=== PATIENT | female | born 1940 | race Caucasian/White ===

== ENCOUNTER → 2016-10-08 | Outpatient (CLI) | payer MEDICARE ==
[~2016-10-08] MED LIST: ASP325TEC; CALCIUM; CARV12.52; CLOP75TA; FELO10TA31; OMG1KC; SIMV20TA3; VITAMIN D
--- NOTE | 2016-10-08 17:07 | Diagnostic Imaging Report ---
EXAMINATION: Bilateral digital screening mammogram with CAD. The current study was also evaluated with a Computer Aided Detection (CAD) system. INDICATION: Screening. No current complaints stated on the questionnaire. COMPARISON: 07/11/15. FINDINGS: The breasts are composed of scattered fibroglandular densities. There is an oval asymmetry seen in the outer aspect of the right breast, measuring 7 mm. The left breast demonstrates no significant change. Benign-appearing vascular calcifications. IMPRESSION: Focal compression views and ultrasound evaluation for lateral right breast asymmetry is recommended. ACR BI-RADS Category 0: Incomplete. (Needs additional imaging evaluation). Result letter will be mailed to the patient. Note: At least 10% of breast cancer is not imaged by mammography. Dictated by: Dictated on workstation # [id number]
== END ==
LOC: RAD 11:15
PROVIDERS: ATTEND Internal Medicine
DX: E04.1 Nontoxic single thyroid nodule (principal)
CPT/HCPCS: 77067

== ENCOUNTER → 2016-10-14 | Outpatient (CLI) | payer MEDICARE ==
--- NOTE | 2016-10-14 19:08 | Diagnostic Imaging Report ---
EXAMINATION: Right breast ultrasound. INDICATION: Asymmetry along the outer aspect of the right breast. FINDINGS: The retroareolar region and outer aspect of the breast was scanned with no other abnormality seen. IMPRESSION: Negative study. The mammographic findings in the outer aspect of the right breast is likely related to summation artifact of parenchyma. Six-month followup mammogram is recommended to ensure stability or resolution. ACR BI-RADS Category 3: Probably benign findings. Result letter will be mailed to the patient. Note: At least 10% of breast cancer is not imaged by mammography. Dictated by: Dictated on workstation # [id number]
--- NOTE | 2016-10-14 19:14 | Diagnostic Imaging Report ---
Right breast diagnostic mammogram. INDICATION: Asymmetry along the outer aspect of the right breast. The current study was also evaluated with a Computer Aided Detection (CAD) system. FINDINGS: There is no correlating lesion seen on the true lateral projection. There is persistent slight density seen of the area of asymmetry noted with focal compression view with no definite underlying lesion. IMPRESSION: Focal compression view is showing less prominent underlying density in favor of summation artifact of parenchyma. Ultrasound evaluation pending. ACR BI-RADS Category 0: Incomplete. (Needs additional imaging evaluation). Result letter will be mailed to the patient. Note: At least 10% of breast cancer is not imaged by mammography. Dictated by: Dictated on workstation # [id number]
== END ==
LOC: RAD 14:09
PROVIDERS: ATTEND Internal Medicine
DX: R92.8 Other abnormal and inconclusive findings on diagnostic imaging of breast (principal)

== ENCOUNTER → 2018-02-15 | Outpatient (CLI) | payer MEDICARE ==
--- NOTE | 2018-02-15 12:00 | Diagnostic Imaging Report ---
INDICATION: Pain and swelling. Wagoner a pop a couple of days ago when getting into car. TECHNIQUE: 3 views of the right knee CORRELATION STUDY: None FINDINGS: Mild diffuse joint space narrowing both medially and laterally. The articular surfaces are smooth. Mild marginal osteophyte formation lateral tibial plateau. No findings to suggest an acute bony abnormality. Minimal spur formation superior pole of patella. There is rather prominent particularly suprapatellar joint effusion. IMPRESSION: 1. Negative for acute bony abnormality of the knee. Prominent suprapatellar joint effusion. Given history and overall findings, if further assessment for intrinsic ligament, meniscal or tendon injury is desired, MRI would be recommended. Dictated by: Dictated on workstation # [id number]
--- NOTE | 2018-02-15 14:55 | Diagnostic Imaging Report ---
INDICATION: Pop behind the right knee. TECHNIQUE: Multiple Real-time grayscale images were obtained over the right popliteal fossa in various projections. FINDINGS: There is a large complex fluid collection in the popliteal fossa measuring 12 x 4 x 5.2 cm. This appears to be some echogenic fluid, likely blood and fluid related to a ruptured White's cyst. This does not appear to be associated with blood vessels. There is no blood flow within it. IMPRESSION: Large complex fluid collection of popliteal cyst, likely a partially ruptured White's cyst. There is no blood flow within it. This does not appear to be associated with the vessels. Dictated by: Dictated on workstation # [id number]
== END ==
LOC: RAD 11:15
PROVIDERS: ATTEND Physician Assistant
DX: M71.21 Synovial cyst of popliteal space [Baker], right knee (principal)
CPT/HCPCS: 73562; 76881

== ENCOUNTER → 2018-11-08 | Outpatient (CLI) | payer MEDICARE ==
--- NOTE | 2018-11-08 21:58 | Diagnostic Imaging Report ---
INDICATION: Routine screening. Comparison is made with prior mammogram from 10/08/2016 and 06/25/2015. 2-D and 3-D bilateral screening mammography was performed with a Computer Aided Detection (CAD) system. FINDINGS: Both breasts are heterogeneously dense, limiting the sensitivity of mammography. The parenchymal pattern is stable. No mass or malignant appearing microcalcifications are seen. Axillae are unremarkable. IMPRESSION: No mammographic features suspicious for malignancy are identified. ACR BI-RADS Category 1: Negative. Result letter will be mailed to the patient. Note: At least 10% of breast cancer is not imaged by mammography. Dictated by: Dictated on workstation # [id number]
== END ==
LOC: RAD 08:44
PROVIDERS: ATTEND Internal Medicine
DX: Z12.31 Encounter for screening mammogram for malignant neoplasm of breast (principal)
CPT/HCPCS: 77067

== ENCOUNTER → 2020-10-10 | Outpatient (CLI) | payer MEDICARE ==
--- NOTE | 2020-10-10 17:02 | Diagnostic Imaging Report ---
EXAMINATION: Left ankle at 02:18 p.m. INDICATION: Left ankle pain. Three views were obtained. COMPARISON: There are no prior studies available for comparison. FINDINGS: There is no fracture, dislocation or acute bony abnormality evident. The ankle mortise is not widened and the talar dome is smooth. There does seem to be soft tissue edema about the ankle joint, particularly along its lateral aspect. IMPRESSION: There is no evidence for an acute bony abnormality. Dictated by: Dictated on workstation # [id number]
== END ==
LOC: RAD 14:02
PROVIDERS: ATTEND Physician Assistant
DX: M25.572 Pain in left ankle and joints of left foot (principal)
CPT/HCPCS: 73610

== ENCOUNTER → 2020-11-11 | Outpatient (CLI) | payer MEDICARE ==
[2020-11-11 16:08] LABS: HEMOGLOBIN 8.8 g/dL (11.5-16.0); MEAN PLATELET VOLUME 8.8 fL (9.0-12.2)
[2020-11-11 16:30] LABS: ALANINE AMINOTRANSFERASE 15 U/L (0-55); ALBUMIN 4.2 GM/DL (3.2-4.5); ALKALINE PHOSPHATASE 99 U/L (40-136); BILIRUBIN,TOTAL 0.9 MG/DL (0.1-1.0); BUN/CREATININE RATIO 16; CALCIUM 9.2 MG/DL (8.5-10.1); CARBON DIOXIDE 28 MMOL/L (21-32); CHLORIDE 97 MMOL/L (98-107); GFR ESTIMATED > 60; GLUCOSE 93 MG/DL (70-105); POTASSIUM 3.7 MMOL/L (3.6-5.0); SODIUM 136 MMOL/L (135-145); TOTAL PROTEIN 7.8 GM/DL (6.4-8.2)
--- NOTE | 2020-11-11 16:59 | Diagnostic Imaging Report ---
PROCEDURE: CT head without contrast. TECHNIQUE: Multiple contiguous axial images were obtained through the brain without the use of intravenous contrast. Auto Exposure Controls were utilized during the CT exam to meet ALARA standards for radiation dose reduction. INDICATION: Dizziness. Syncope. Frontal headache. COMPARISON: None. FINDINGS: Moderate generalized cerebral and cerebellar parenchymal volume loss. Moderate leukoaraiosis. No CT evidence of a territorial infarction. No intracranial hemorrhage, mass effect, hydrocephalus, or extra-axial fluid collections. No acute osseous findings. Visualized paranasal sinuses and mastoids are clear. IMPRESSION: No acute intracranial CT findings. Dictated by: Dictated on workstation # [id number]
== END ==
LOC: RAD
PROVIDERS: ATTEND Physician Assistant
DX: R42 Dizziness and giddiness (principal); R53.1 Weakness; R55 Syncope and collapse; R51.9 Headache, unspecified
CPT/HCPCS: 36415; 70450; 80053; 84443; 85027

== ENCOUNTER → 2020-11-12 | Outpatient (CLI) | payer MEDICARE | LOC: LABNPT 06:13 | PROVIDERS: ATTEND Physician Assistant | DX: R42 Dizziness and giddiness (principal); R55 Syncope and collapse; R53.1 Weakness ==

== ENCOUNTER → 2020-11-27 | Outpatient (CLI) | payer MEDICARE ==
[~2020-11-27] MED LIST changes: +ASPI-808 PO; +CARV12.53 PO; +DILT120T3 PO; +FURO40TA4 PO; +OMEP20CA18 PO; +PANT40TA2 PO; +POTA99TA21 PO; +RIVA20TA PO; +SIMV40TA25 PO; +SUCR1TAB36 PO
== END ==
LOC: CANPRECLI → LAB 16:00
PROVIDERS: ATTEND Nurse Practitioner Family

== ENCOUNTER → 2020-11-27 | Outpatient (CLI) | payer MEDICARE ==
[~2020-11-27] MED LIST changes: -ASPI-808 PO; -CARV12.53 PO; -DILT120T3 PO; -FURO40TA4 PO; -OMEP20CA18 PO; -PANT40TA2 PO; -POTA99TA21 PO; -RIVA20TA PO; -SIMV40TA25 PO; -SUCR1TAB36 PO
[2020-11-27 16:29] LABS: BASOPHILS # (AUTO) 0.1 10^3/uL (0.0-0.1); BASOPHILS % (AUTO) 1 % (0-10); EOSINOPHILS # (AUTO) 0.1 10^3/uL (0.0-0.3); EOSINOPHILS % (AUTO) 2 % (0-10); HEMATOCRIT 28 % (35-52); HEMOGLOBIN 8.4 g/dL (11.5-16.0); LYMPHOCYTES # (AUTO) 0.9 10^3/uL (1.0-4.0); LYMPHOCYTES % (AUTO) 20 % (12-44); MEAN CORPUSCULAR HEMOGLOBIN 26 pg (25-34); MEAN CORPUSCULAR HGB CONC 30 g/dL (32-36); MEAN CORPUSCULAR VOLUME 85 fL (80-99); MEAN PLATELET VOLUME 8.8 fL (9.0-12.2); MONOCYTES # (AUTO) 0.6 10^3/uL (0.0-1.0); MONOCYTES % (AUTO) 12 % (0-12); NEUTROPHILS % (AUTO) 65 % (42-75); PLATELET COUNT 259 10^3/uL (130-400); WHITE BLOOD COUNT 4.7 10^3/uL (4.3-11.0)
[2020-11-27 16:48] LABS: ALANINE AMINOTRANSFERASE 24 U/L (0-55); ALKALINE PHOSPHATASE 84 U/L (40-136); BILIRUBIN,TOTAL 0.6 MG/DL (0.1-1.0); BUN/CREATININE RATIO 17; CALCIUM 8.6 MG/DL (8.5-10.1); CARBON DIOXIDE 26 MMOL/L (21-32); CHLORIDE 97 MMOL/L (98-107); CREATININE SERUM 0.72 MG/DL (0.60-1.30); GFR ESTIMATED > 60; GLUCOSE 99 MG/DL (70-105); POTASSIUM 3.7 MMOL/L (3.6-5.0); SODIUM 131 MMOL/L (135-145)
== END ==
LOC: LAB 16:08
PROVIDERS: ATTEND Nurse Practitioner Family
DX: R42 Dizziness and giddiness (principal); R53.83 Other fatigue; R60.9 Edema, unspecified
CPT/HCPCS: 80053

== ENCOUNTER → 2020-12-05 | Outpatient (CLI) | payer MEDICARE ==
[~2020-12-05] MED LIST changes: +ASPI-808 PO; +CARV12.53 PO; +DILT120T3 PO; +FURO40TA4 PO; +OMEP20CA18 PO; +POTA99TA21 PO; +RIVA20TA PO; +SIMV40TA25 PO
--- NOTE | 2020-12-05 15:31 | Diagnostic Imaging Report ---
EXAMINATION: CT Abdomen Pelvis without contrast. TECHNIQUE: Multiple contiguous axial images were obtained through the abdomen and pelvis without the use of intravenous contrast. All CT scans use one or more of the following dose optimizing techniques: automated exposure control, MA and/or KvP adjustment based on a patient size and exam type, or iterative reconstruction. HISTORY: Abdominal pain and bloating. COMPARISON: None available. FINDINGS: Lung bases: There is a large right pleural effusion with adjacent atelectasis or consolidation. Solid organs: The liver is normal. The gallbladder is normal. There is no biliary ductal dilation. Pancreas is normal. Spleen is normal. Adrenal glands are normal. The kidneys are normal without visualized calculus or hydronephrosis. Bowel: The bowel is unremarkable without obstruction. There is a moderate amount of stool within the colon. Peritoneum: There is trace free fluid within the abdomen and pelvis. No suspicious lymphadenopathy. Vasculature: Calcification of the aorta without aneurysm. Musculoskeletal: Multilevel degenerative changes of the lumbar spine with mild compression deformities at L3 and L5. No suspicious osseous lesion. Pelvis: The uterus and adnexa are normal. The urinary bladder is normal. IMPRESSION: 1. No acute abnormality in the abdomen or pelvis. No bowel obstruction. 2. Mild abdominal and pelvic ascites. 3. Large right pleural effusion with adjacent atelectasis or consolidation. Dictated by: Dictated on workstation # [id number]
== END ==
LOC: RAD 14:52
PROVIDERS: ATTEND Internal Medicine
DX: R10.9 Unspecified abdominal pain (principal); R18.8 Other ascites; J90 Pleural effusion, not elsewhere classified; J98.11 Atelectasis
CPT/HCPCS: 74176

== ENCOUNTER 2020-12-09 05:28 | Outpatient (RCR) | payer MEDICARE ==
[~2020-12-09] VITALS: Ht 160 cm; Wt 49.9 kg
[~2020-12-09 05:28] MED LIST changes: -PANT40TA2 PO; -SUCR1TAB36 PO
[2020-12-10] MEDS ORDERED: PANT40TA2 PO (15:15)
[2020-12-10] MEDS ORDERED: SUCR1TAB36 PO (15:15)
== END 2020-12-09 09:30 | disposition home or self-care (01) ==
LOC: PREOP 05:28
PROVIDERS: ATTEND Surgery
DX: Z01.812 Encounter for preprocedural laboratory examination (principal); D64.9 Anemia, unspecified; R19.4 Change in bowel habit; Z20.822 Contact with and (suspected) exposure to COVID-19
CPT/HCPCS: 87635

== ENCOUNTER → 2020-12-09 | Outpatient (CLI) | payer MEDICARE ==
[~2020-12-09] MED LIST changes: +PANT40TA2 PO; +SUCR1TAB36 PO
[2020-12-09 08:18] VITALS: BP 107/90
[2020-12-09 09:00] VITALS: BP 110/87
--- NOTE | 2020-12-09 09:42 | Diagnostic Imaging Report ---
INDICATION: Status post thoracentesis. COMPARISON: CT dated 12/05/2020 FINDINGS: Single frontal radiograph view of the chest was obtained and demonstrates mild cardiomegaly and calcified aortic atherosclerosis. Pulmonary vasculature is within normal limits. Lungs are hyperinflated with flattened hemidiaphragms, but are otherwise clear. There is no large pneumothorax or effusion on either side. Osseous structures show no gross acute abnormalities. IMPRESSION: 1. No pneumothorax status post thoracentesis. 2. Hyperinflated appearance to the lungs. Please correlate for underlying obstructive pulmonary disease. Dictated by: Dictated on workstation # [id number]
[2020-12-09 09:44] LABS: AMYLASE,BODY FLUID 33 U/L; GLUCOSE,BODY FLUID 95 MG/DL; LDH,BODY FLUID 121 U/L; TOTAL PROTEIN,BODY FLUID 3.9 G/DL
[2020-12-09 10:36] LABS: BODY FLUID SOURCE PLEURAL
[2020-12-09 10:37] LABS: BF OTHER CELLS 10 %; BODY FLUID APPEARENCE MOD BLDY; BODY FLUID COLOR RED; BODY FLUID RBC COUNT 54500 /uL; BODY FLUID WBC TOTAL COUNT 700 /uL; LYMPHOCYTES,BODY FLUID 77 %
--- NOTE | 2020-12-09 12:31 | Diagnostic Imaging Report ---
INDICATION: Right-sided pleural effusion. Sonographic guidance was provided for Dr. Pack for performance of a thoracentesis. Images demonstrate a large right pleural effusion. Approximately 400 mL of fluid was removed by Dr. Pack. IMPRESSION: Sonographic guidance Dr. Pack for thoracentesis. Dictated by: Dictated on workstation # [id number]
== END ==
LOC: RAD 08:05
PROVIDERS: ATTEND Surgery
DX: J90 Pleural effusion, not elsewhere classified (principal); Z98.890 Other specified postprocedural states
CPT/HCPCS: 32555; 71045; 82150; 82570; 82945; 83615; 84157; 87070; 87075; 87205; 89051; A7048

== ENCOUNTER 2020-12-10 13:55 | Day surgery (SDC) | payer MEDICARE ==
[~2020-12-10] VITALS: Ht 160 cm; Wt 50.0 kg
[2020-12-10] MEDS ORDERED: LACTATED RINGERS 1,000 ML IV ONE (13:56)
[2020-12-10] MEDS ORDERED: LACTATED RINGERS 1,000 ML IV STA (13:57)
[2020-12-10] MEDS ORDERED: HURRICAINE EXT TUBE (BENZOCAINE) XX PRN (14:00)
[2020-12-10] MEDS ORDERED: PROPOFOL INJECTION 50 ML IV ONE (14:07)
--- NOTE | 2020-12-10 14:08 | Progress Note-Pre Operative ---
Pre-Operative Progress Note H&P Reviewed The H&P was reviewed, patient examined and no changes noted. Date Seen by Provider: Dec 10, 2020 Time Seen by Provider: 14:07 Date H&P Reviewed: Dec 10, 2020 Time H&P Reviewed: 14:07 Pre-Operative Diagnosis: anemia, change in bowel habits DOROTHEA CHAVARRIA DO Dec 10, 2020 14:08
[2020-12-10 14:18] VITALS: BP 135/120
[2020-12-10 15:00] VITALS: BP 96/54
[2020-12-10 15:05] VITALS: BP 92/54
--- NOTE | 2020-12-10 15:06 | Anesthesia-General Post-Op ---
MAC Patient Condition Mental Status/LOC: Same as Preop Cardiovascular: Satisfactory Nausea/Vomiting: Absent Respiratory: Satisfactory Pain: Controlled Complications: Absent Post Op Complications Complications None Follow Up Care/Instructions Patient Instructions None needed. Anesthesiology Discharge Order Discharge Order Patient is doing well, no complaints, stable vital signs, no apparent adverse anesthesia problems. No complications reported per nursing. SUSIE MACHADO CRNA Dec 10, 2020 15:06
[2020-12-10 15:10] VITALS: BP 91/53
--- NOTE | 2020-12-10 15:11 | Progress Note-Post Operative ---
Post-Operative Progess Note Surgeon (s)/Director Of Physical Education (s) Surgeon DOROTHEA CHAVARRIA DO Director Of Physical Education: na Pre-Operative Diagnosis anemia, change in bowel habits Post-Operative Diagnosis normal colon, antral ulcer Procedure & Operative Findings Date of Procedure 12/10/20 Procedure Performed/Findings egd c biopsy, colonoscopy Anesthesia Type per stock chaser Estimated Blood Loss Estimated blood loss (mL): none Specimens/Packing Specimens Removed antral ulcer DOROTHEA CHAVARRIA DO Dec 10, 2020 15:11
[2020-12-10 15:15] VITALS: BP 91/53
[2020-12-10] MEDS ORDERED: SUCR1TAB36 PO (15:15)
[2020-12-10] MEDS ORDERED: PANT40TA2 PO (15:15)
--- NOTE | 2020-12-10 15:16 | Discharge Inst-Simple/Standard ---
Discharge Inst-Standard Discharge Medications New, Converted or Re-Newed RX: Transmitted to Pharmacy Patient Instructions/Follow Up Plan of Care/Instructions/FU: 2 weeks Ramone. Discussed with Cardiology Afib, Take your home medications and monitor heart rate. If heart rate remains greater than 100 go to the emergency department for further evaluation. Activity as Tolerated: Yes Discharge Diet: Regular Diet (ulcer diet) DOROTHEA CHAVARRIA DO Dec 10, 2020 15:16
[2020-12-10 15:50] VITALS: BP 93/58
--- NOTE | 2020-12-11 01:48 | OPERATIVE REPORT ---
DATE OF SERVICE: 12/10/2020 PREOPERATIVE DIAGNOSES: Anemia, change in bowel habits. POSTOPERATIVE DIAGNOSES: Normal colon, antral ulcer, and gastritis. PROCEDURE: EGD with biopsies, colonoscopy. SURGEON: Dorothea Pack DO ANESTHESIA: Per CHECK AND TRANSFER BEADER. ESTIMATED BLOOD LOSS: None. COMPLICATIONS: None. INDICATIONS: The patient is an 80-year-old female who found to be anemic and has had a change in bowel habits. She understands risks and benefits of procedure and wished to proceed with procedure. Consent was signed in the chart. DESCRIPTION OF PROCEDURE: The patient was taken to the endoscopy suite, placed in left lateral recumbent position. Timeout was performed. Scope was inserted in mouth, down the esophagus, stomach and into the duodenum. There were no polyps, masses or ulcerations within the duodenum. Scope was slowly retracted back into the stomach where it was further insufflated. Gastritis appearance, erythematous changes throughout the antrum present. Also, antral ulcer present, biopsy of the antral ulcer was obtained. Scope was retroflexed noting no other pathology. Scope was returned to its normal position, slowly withdrawn to distal esophagus, which had a normal appearance. No polyps, masses or ulcerations noted there. No erythematous changes. Scope was then slowly retracted back to completely remove, noting no other pathology. Digital rectal exam was performed. There were no palpable polyps, masses or ulcerations. Scope was inserted in the rectum, advanced all the way to cecum with minimal difficulty. Prep was adequate. Scope was then slowly retracted back. No polyps, masses or ulcerations within the cecum, ascending, transverse, descending and sigmoid colon. Once in the rectum, scope was inserted and retracted multiple times, noting no other pathology. Scope was then slowly retracted back until completely removed. The patient tolerated procedure well without any complications. She was taken to recovery room in stable condition. RECOMMENDATIONS: The patient will be started on Carafate 1 gram four times a day and Protonix 40 mg daily. The patient is with history of atrial fibrillation and has atrial fibrillation now. I discussed with cardiology, who recommend proceeding was discharged home with the patient taking her medications. Continue to monitor heart rate. If continues to be elevated to return to the Emergency Department for further evaluation. Job ID: [id number] DocumentID: [id number] Dictated Date: 12/10/2020 15:19:45 Review Scheduling Coordinator Date: 12/11/2020 01:48:02 Dictated By: DOROTHEA PACK DO
--- NOTE | 2020-12-11 03:18 | OPERATIVE REPORT ---
DATE OF SERVICE: PREOPERATIVE DIAGNOSIS: Right pleural effusion. POSTOPERATIVE DIAGNOSIS: Right pleural effusion. PROCEDURE: Ultrasound-guided right thoracentesis. SURGEON: Dorothea Pack DO ANESTHESIA: Local 1% lidocaine 3 mL. ESTIMATED BLOOD LOSS: Minimal. COMPLICATIONS: None. INDICATIONS: The patient is an 80-year-old female with a large right pleural effusion by CT scan. She understands risks and benefits of procedure and wished to proceed with procedure. Consent was signed in the chart. DESCRIPTION OF PROCEDURE: The patient was taken to the procedure room and ultrasound was used to isolate the largest pocket on the right chest. Local anesthetic was infiltrated after it was prepped and draped in sterile fashion. A #11 blade scalpel was used to make a small skin incision and [id number]-[id number] catheter and needle was advanced until fluid was returned. The catheter was advanced, and the needle was removed. A total of 400 mL of slightly blood-tinged fluid was withdrawn. The catheter was removed, and sterile bandage was applied. The patient tolerated procedure well without any complications. Chest x-ray pending. Job ID: [id number] DocumentID: [id number] Dictated Date: 12/10/2020 14:32:22 Crater And Packer Date: 12/11/2020 01:13:32 Dictated By: DOROTHEA PACK DO
== END 2020-12-10 15:50 | disposition home or self-care (01) ==
LOC: ENDO 13:55
PROVIDERS: ATTEND Surgery
DX: K29.50 Unspecified chronic gastritis without bleeding (principal); K25.9 Gastric ulcer, unspecified as acute or chronic, without hemorrhage or perforation; R19.4 Change in bowel habit; I48.91 Unspecified atrial fibrillation; E78.2 Mixed hyperlipidemia; I10 Essential (primary) hypertension; J90 Pleural effusion, not elsewhere classified; D50.9 Iron deficiency anemia, unspecified; I25.10 Atherosclerotic heart disease of native coronary artery without angina pectoris; K31.89 Other diseases of stomach and duodenum; Z88.8 Allergy status to other drugs, medicaments and biological substances; Z87.891 Personal history of nicotine dependence; Z79.82 Long term (current) use of aspirin; Z20.822 Contact with and (suspected) exposure to COVID-19; Z79.899 Other long term (current) drug therapy; Z95.828 Presence of other vascular implants and grafts; Z79.01 Long term (current) use of anticoagulants; Z79.02 Long term (current) use of antithrombotics/antiplatelets
CPT/HCPCS: 88305; 88342

== ENCOUNTER → 2021-01-13 | Outpatient (CLI) | payer MEDICARE ==
[~2021-01-13] MED LIST changes: +PANT40TA2 PO; +SUCR1TAB36 PO
--- NOTE | 2021-01-13 10:36 | Diagnostic Imaging Report ---
Indication: Right pleural effusion. Time of exam: 10:22 AM Correlation is made with prior chest 12/09/2020. The heart is enlarged but stable. There is a small right pleural effusion. The lungs are hyperinflated consistent with COPD. No infiltrates are identified. There is no pneumothorax. IMPRESSION: COPD and small right pleural effusion. Dictated by: Dictated on workstation # [id number]
== END ==
LOC: RAD 09:47
PROVIDERS: ATTEND Physician Assistant
DX: J90 Pleural effusion, not elsewhere classified (principal); J44.9 Chronic obstructive pulmonary disease, unspecified
CPT/HCPCS: 71046

== ENCOUNTER → 2021-09-08 | Outpatient (CLI) | payer MEDICARE ==
[~2021-09-08] MED LIST changes: -POTA99TA21 PO; +POTA99TA26 PO
== END ==
LOC: LAB 13:18
PROVIDERS: ATTEND Internal Medicine
DX: D64.9 Anemia, unspecified (principal)
CPT/HCPCS: 36415; 82728

== ENCOUNTER → 2021-09-15 | Outpatient (CLI) | payer MEDICARE ==
[2021-09-15 15:24] LABS: ABSOLUTE RETIC # 42 10e9/uL (24-90); BASOPHILS % (AUTO) 1 % (0-10); EOSINOPHILS # (AUTO) 0.1 10^3/uL (0.0-0.3); EOSINOPHILS % (AUTO) 2 % (0-10); HEMATOCRIT 27 % (35-52); HEMOGLOBIN 8.5 g/dL (11.5-16.0); LYMPHOCYTES # (AUTO) 0.9 10^3/uL (1.0-4.0); LYMPHOCYTES % (AUTO) 17 % (12-44); MEAN CORPUSCULAR HEMOGLOBIN 25 pg (25-34); MEAN CORPUSCULAR HGB CONC 31 g/dL (32-36); MEAN CORPUSCULAR VOLUME 79 fL (80-99); MEAN PLATELET VOLUME 8.9 fL (9.0-12.2); MONOCYTES # (AUTO) 0.7 10^3/uL (0.0-1.0); MONOCYTES % (AUTO) 14 % (0-12); NEUTROPHILS # (AUTO) 3.5 10^3/uL (1.8-7.8); NEUTROPHILS % (AUTO) 66 % (42-75); PLATELET COUNT 298 10^3/uL (130-400); RETICULOCYTE % 1.23 % (0.50-2.40); WHITE BLOOD COUNT 5.3 10^3/uL (4.3-11.0)
[2021-09-15 15:53] LABS: ACANTHOCYTES SLIGHT; ELLIPT/OVALOCYTES SLIGHT; EOSINOPHILS % (MANUAL) 4 %; LYMPHOCYTES % (MANUAL) 15 %; MONOCYTES % (MANUAL) 11 %; NEUTROPHILS % (MANUAL) 70 %; POLYCHROMASIA MODERATE; TARGET CELLS SLIGHT
== END ==
LOC: LAB 14:54
PROVIDERS: ATTEND Internal Medicine
DX: D64.9 Anemia, unspecified (principal)
CPT/HCPCS: 36415; 82728; 85007; 85027; 85045; 85055

== ENCOUNTER 2021-09-25 13:05 | Outpatient (RCR) | payer MEDICARE ==
[~2021-09-25] VITALS: Ht 157 cm; Wt 47.0 kg
[2021-09-25 13:20] VITALS: BP 122/50
[2021-09-25] MEDS ORDERED: FERRIC CARBOXYMALTOSE INJ 750 MG in NS (IVPB) 250 ML IV ONE (13:30)
[2021-10-09] MEDS ORDERED: FERRIC CARBOXYMALTOSE INJ 750 MG in NS (IVPB) 250 ML IV NR (09:00)
== END 2021-09-29 | disposition home or self-care (01) ==
LOC: SDC 13:05
PROVIDERS: ATTEND Internal Medicine
DX: D64.9 Anemia, unspecified (principal)
CPT/HCPCS: 96365

== ENCOUNTER 2021-10-08 13:16 | Outpatient (RCR) | payer MEDICARE ==
[~2021-10-08] VITALS: Wt 47.0 kg
[2021-10-08 13:10] VITALS: BP 114/40
[2021-10-08] MEDS ORDERED: FERRIC CARBOXYMALTOSE INJ 750 MG in NS (IVPB) 250 ML IV SCH (13:30)
== END 2021-10-27 | disposition home or self-care (01) ==
LOC: SDC 13:16
PROVIDERS: ATTEND Internal Medicine
DX: D64.9 Anemia, unspecified (principal)
CPT/HCPCS: 96365

== ENCOUNTER → 2021-11-04 | Outpatient (CLI) | payer MEDICARE ==
--- NOTE | 2021-11-04 12:43 | Diagnostic Imaging Report ---
INDICATION: Lower back pain. COMPARISON: CT 12/02/2020 FINDINGS: 3 views of the lumbar column demonstrate normal alignment. Compared to the prior examination there is a new but chronic appearing L2 compression fracture with minimal height loss. There is a definite chronic fracture deformity involving the L5 vertebral body. [id number] degenerative changes are present. There is no osseous lesion. Aortic calcifications are present. IMPRESSION: 1. Age-indeterminate but likely chronic L2 compression fracture. 2. Chronic L5 compression fracture. 3. Degenerative disc disease. Dictated by: Dictated on workstation # [id number]
--- NOTE | 2021-11-04 14:21 | Diagnostic Imaging Report ---
INDICATION: Pelvic pain. TIME OF EXAM: 10:43 AM Multiple views of the sacroiliac joints were obtained. Images are somewhat obscured by overlying bowel gas. No definite ankylosis, sclerosis or osseous erosive changes of the sacroiliac joints are identified. IMPRESSION: No acute feature detected. Dictated by: Dictated on workstation # [id number]
== END ==
LOC: RAD 10:18
PROVIDERS: ATTEND Nurse Practitioner Family
DX: M51.36 Other intervertebral disc degeneration, lumbar region (principal); M48.56XA Collapsed vertebra, not elsewhere classified, lumbar region, initial encounter for fracture
CPT/HCPCS: 72100; 72202

== ENCOUNTER → 2021-11-25 | Outpatient (CLI) | payer MEDICARE ==
--- NOTE | 2021-11-25 18:04 | Diagnostic Imaging Report ---
INDICATION: 81-year-old female, postmenopausal. Screening for osteoporosis.. COMPARISON: None. FINDINGS: AP Spine L1-L4: [BMD (g/cm2): 0.885] [T-Score: -2.6] [Z-Score: -0.1] [BMD Previous: na] [BMD % Change: na] LT Hip Neck: [BMD (g/cm2): 0.704] [T-Score: -2.4] [Z-Score: 0.3] LT Hip Total: [BMD (g/cm2):0.662] [T-Score:-2.7] [Z-Score: -0.1] [BMD Previous: na] [BMD % Change: na] RT Hip Neck: [BMD (g/cm2):0.682] [T-Score:-2.6] [Z-Score:0.1] RT Hip Total: [BMD (g/cm2):0.633] [T-score:-2.7] [Z-Score:-0.1] [BMD Previous:na] [BMD % Change:na] *Indicates significant change from prior examination based on 95% confidence level. World Health Organization criteria for BMD interpretation classify patients as Normal (T-score at or above -1.0), Osteopenic (T-score between -1.0 and -2.5) or Osteoporotic (T-score at or below -2.5). LIMITATIONS AND MODIFICATION: None. IMPRESSION: 1. Osteoporosis. 2. Baseline examination. 3. See below National Osteoporosis Foundation guidelines on when to potentially initiate pharmacologic therapy. Based on the National Osteoporosis Foundation Guidelines, pharmacologic treatment should be initiated in any of the following, unless clinical conditions suggest otherwise: * Any patient with prior fragility fracture of the hip or vertebrae. A spine fracture indicates 5X risk for subsequent spine fracture and 2X risk for subsequent hip fracture. * Osteoporosis (T-score <-2.5). * Postmenopausal women and men age 50 and older with low bone mass/osteopenia (T-score between -1.0 and -2.5) by DXA and 10-year major osteoporotic fracture greater than 20% or a 10-year probability of hip fracture greater than 3%. These fracture risks are supplied above in the FRAX score, if applicable. * Clinician judgement and/or patient preferences may indicate treatment for people with 10-year fracture probabilities above or below these levels. Dictated by: Dictated on workstation # [id number]
== END ==
LOC: RAD 13:00
PROVIDERS: ATTEND Nurse Practitioner Family
DX: Z13.820 Encounter for screening for osteoporosis (principal); M81.0 Age-related osteoporosis without current pathological fracture; Z78.0 Asymptomatic menopausal state
CPT/HCPCS: 77080

== ENCOUNTER → 2021-12-09 | Outpatient (CLI) | payer MEDICARE ==
[2021-12-09 17:16] LABS: HEMATOCRIT 38 % (35-52); HEMOGLOBIN 12.4 g/dL (11.5-16.0); MEAN CORPUSCULAR HEMOGLOBIN 31 pg (25-34); MEAN CORPUSCULAR HGB CONC 32 g/dL (32-36); MEAN CORPUSCULAR VOLUME 95 fL (80-99); MEAN PLATELET VOLUME 10.6 fL (9.0-12.2); PLATELET COUNT 228 10^3/uL (130-400); WHITE BLOOD COUNT 6.8 10^3/uL (4.3-11.0)
[2021-12-09 17:26] LABS: ALBUMIN 4.2 GM/DL (3.2-4.5); POTASSIUM 4.4 MMOL/L (3.6-5.0)
[2021-12-09 17:28] LABS: CALCIUM 9.2 MG/DL (8.5-10.1)
[2021-12-09 17:29] LABS: TOTAL PROTEIN 6.8 GM/DL (6.4-8.2)
[2021-12-09 17:31] LABS: BILIRUBIN,TOTAL 0.5 MG/DL (0.1-1.0)
[2021-12-09 17:33] LABS: CREATININE SERUM 0.78 MG/DL (0.60-1.30)
== END ==
LOC: LABNPT 17:08
PROVIDERS: ATTEND Internal Medicine
DX: R22.43 Localized swelling, mass and lump, lower limb, bilateral (principal); I10 Essential (primary) hypertension
CPT/HCPCS: 80053; 84443; 85027

== ENCOUNTER 2022-08-27 20:31 | Inpatient (IN) | payer MEDICARE ==
[~2022-08-27] VITALS: Ht 157.4 cm; Wt 46.2 kg
--- NOTE | 2022-08-27 20:49 | ED Chest Pain ---
General Chief Complaint: Chest Pain Stated Complaint: CHEST PAINS Nursing Triage Note: PT TO RM 2 BY WC WITH SPOUSE WITH C/O CP X2 HOURS THAT RADIATES TO L ARM AND NECK AREA. PT DENIES TAKING ANY MEDICATION PASTRY CHEF Source: patient, family () Exam Limitations: no limitations History of Present Illness Date Seen by Provider: Aug 27, 2022 Time Seen by Provider: 20:38 Initial Comments Arelis is a 89-year-old female who presents to the emergency department with her chief complaint left neck and jaw pain and L shoulder pain onset about 6 PM this evening. Patient was at a [employer] with her . She became very nauseous and did vomit. She took no medication for the pain. She has a previous history of coronary artery disease with a stent placed years ago. She states that she is mostly compliant with her daily medications, she does not recall that she is missed any recently. She rates the pain a "8". Mildly nauseous currently. No shortness of breath. Non-smoker. History of A. fib on Xarelto. No recent febrile illnesses, productive cough, URI symptoms. No problems with bowel or bladder. All other review of systems reviewed and negative except as stated. Timing/Duration: 1-3 hours Severity/Quality: moderate ("7-8") Location: other (left neck/jaw and shoulder) Activities at Onset: none Prior CP/Workup: cardiac cath (with stents 10-15y ago) ASA po PASTRY CHEF: No NTG SL PASTRY CHEF: No Associated Symptoms: nausea/vomiting Allergies and Home Medications Allergies Coded Allergies: iodine (Unverified Allergy, Mild, 04/08/09) Patient Home Medication List Home Medication List Reviewed: Yes Aspirin (Aspirin) 325 Mg Tablet, 325 MG PO DAILY, (Reported) Entered as Reported by: GREY MEJIA on 12/06/20 1214 Carvedilol (Carvedilol) 12.5 Mg Tablet, 12.5 MG PO BID, (Reported) Entered as Reported by: GREY MEJIA on 12/06/20 1214 Diltiazem HCl (Diltiazem HCl) 120 Mg Tablet, 180 MG PO DAILY, (Reported) Entered as Reported by: GREY MEJIA on 12/06/20 1214 Furosemide (Furosemide) 40 Mg Tablet, 60 MG PO DAILY, (Reported) Entered as Reported by: GREY MEJIA on 12/06/20 1214 Pantoprazole Sodium (Protonix) 40 Mg Tablet.dr, 40 MG PO DAILY Prescribed by: DOROTHEA CHAVARRIA on 12/10/20 151 Potassium Gluconate (Potassium) 99 Mg Tablet, 99 MG PO DAILY, (Reported) Entered as Reported by: GREY MEJIA on 12/06/20 121 Rivaroxaban (Xarelto) 20 Mg Tablet, 20 MG PO DAILY, (Reported) Entered as Reported by: GREY MEJIA on 12/06/20 121 Simvastatin (Simvastatin) 40 Mg Tablet, 40 MG PO DAILY, (Reported) Entered as Reported by: GREY MEJIA on 12/06/20 121 Sucralfate (Carafate) 1 Gm Tablet, 1 GM PO QID Prescribed by: DOROTHEA CHAVARRIA on 12/10/201514 Review of Systems Review of Systems Constitutional: see HPI EENTM: No Symptoms Reported Respiratory: No Symptoms Reported Cardiovascular: Other (left neck/jaw and shoulder) Gastrointestinal: Nausea, Vomiting Genitourinary: No Symptoms Reported Musculoskeletal: joint pain (left shoulder) Skin: no symptoms reported All Other Systems Reviewed Negative Unless Noted: Yes Past Rrzygwm-Lsdieo-Iwhfim Hx Patient Social History Tobacco Use?: No Substance use?: No Alcohol Use?: Yes Pt feels they are or have been: No Immunizations Up To Date Influenza Vaccine Up-to-Date: No; Not Current First/Initial COVID19 Vaccinat: 09/19/2020 Second COVID19 Vaccination Benny: 10/19/2020 Third COVID19 Vaccination Date: YES Past Medical History Surgery/Hospitalization HX: STENTS HTN, HLD Surgeries: Yes Respiratory: No Reproductive Disorders: No Musculoskeletal: No Endocrine: No Psychosocial: No Blood Disorders: Yes Physical Exam Vital Signs Vital Signs - First Documented 08/27/22 08/27/22 20:36 21:07 Pulse 84 Resp 16 B/P (MAP) 103/59 (74) Pulse Ox 96 O2 Delivery Nasal Cannula O2 Flow Rate 3.00 Capillary Refill : Height, Weight, BMI Height: 5'2.00" Weight: 100lbs. oz. 45.413484bt; 19.53 BMI Method:Estimated General Appearance: No Apparent Distress, Thin HEENT: PERRL/EOMI Neck: Full Range of Motion, Normal Inspection, Non Tender Respiratory: Lungs Clear, Normal Breath Sounds, No Accessory Muscle Use, No Respiratory Distress Cardiovascular: Irregularly Irregular Gastrointestinal: Non Tender, Soft Extremity: Normal Capillary Refill, Normal Inspection, Normal Range of Motion, Non Tender Neurologic/Psychiatric: Alert, Oriented x3, No Motor/Sensory Deficits, Normal Mood/Affect, counseling services director II-XII Norm as Tested Skin: Normal Color, Warm/Dry Progress/Results/Core Measures Results/Orders Lab Results Laboratory Tests Test 08/27/22 20:40 Range/Units White Blood Count 9.4 4.3-11.0 10^3/uL Red Blood Count 4.08 3.80-5.11 10^6/uL Hemoglobin 13.4 11.5-16.0 g/dL Hematocrit 40 35-52 % Mean Corpuscular Volume 98 80-99 fL Mean Corpuscular Hemoglobin 33 25-34 pg Mean Corpuscular Hemoglobin Concent 34 32-36 g/dL Red Cell Distribution Width 13.1 10.0-14.5 % Platelet Count 174 130-400 10^3/uL Mean Platelet Volume 9.4 9.0-12.2 fL Immature Granulocyte % (Auto) 0 % Neutrophils (%) (Auto) 76 H 42-75 % Lymphocytes (%) (Auto) 14 12-44 % Monocytes (%) (Auto) 8 0-12 % Eosinophils (%) (Auto) 1 0-10 % Basophils (%) (Auto) 0 0-10 % Neutrophils # (Auto) 7.1 1.8-7.8 10^3/uL Lymphocytes # (Auto) 1.4 1.0-4.0 10^3/uL Monocytes # (Auto) 0.7 0.0-1.0 10^3/uL Eosinophils # (Auto) 0.1 0.0-0.3 10^3/uL Basophils # (Auto) 0.0 0.0-0.1 10^3/uL Immature Granulocyte # (Auto) 0.0 0.0-0.1 10^3/uL Prothrombin Time 16.3 H 12.2-14.7 SEC INR Comment 1.3 0.8-1.4 Activated Partial Thromboplast Time 37 H 24-35 SEC Sodium Level 136 135-145 MMOL/L Potassium Level 3.2 L 3.6-5.0 MMOL/L Chloride Level 100 98-107 MMOL/L Carbon Dioxide Level 24 21-32 MMOL/L Anion Gap 12 5-14 MMOL/L Blood Urea Nitrogen 6 L 7-18 MG/DL Creatinine 0.69 0.60-1.30 MG/DL Estimat Glomerular Filtration Rate 86 BUN/Creatinine Ratio 9 Glucose Level 102 70-105 MG/DL Calcium Level 9.1 8.5-10.1 MG/DL Corrected Calcium 9.0 8.5-10.1 MG/DL Magnesium Level 1.8 1.6-2.4 MG/DL Total Bilirubin 0.6 0.1-1.0 MG/DL Aspartate Amino Transf (AST/SGOT) 39 H 5-34 U/L Alanine Aminotransferase (ALT/SGPT) 25 0-55 U/L Alkaline Phosphatase 75 40-136 U/L Troponin I 0.054 H <0.028 NG/ML Total Protein 7.1 6.4-8.2 GM/DL Albumin 4.1 3.2-4.5 GM/DL My Orders Orders - FREDIS CUELLAR MD Ekg Tracing (08/27/22 20:34) Cbc With Automated Diff (08/27/22 20:49) Magnesium (08/27/22 20:49) Chest 1 View, Ap/Pa Only (08/27/22 20:49) Ekg Tracing (08/27/22 20:49) Comprehensive Metabolic Panel (08/27/22 20:49) Protime With Inr (08/27/22 20:49) Partial Thromboplastin Time (08/27/22 20:49) O2 (08/27/22 20:49) Monitor-Rhythm Ecg Trace Only (08/27/22 20:49) Lipid Panel (08/28/22 06:00) Ed Iv/Invasive Line Start (08/27/22 20:49) Troponin I Ramandeep (08/27/22 20:49) Aspirin Chewable Tablet (Baby Aspirin Ch (08/27/22 21:00) Fentanyl Inj (Sublimaze Injection) (08/27/22 21:00) Ns Iv 1000 Ml (Sodium Chloride 0.9%) (08/27/22 21:00) Ondansetron Injection (Zofran Injectio (08/27/22 21:00) Enoxaparin Injection (Lovenox Injection) (08/27/22 22:00) Medications Given in ED Current Medications Medications Dose Ordered Sig/Milena Route Start Time Stop Time Status Last Admin Dose Admin Aspirin 324 mg ONCE ONCE PO 08/27/22 21:00 08/27/22 21:01 DC 08/27/22 20:58 324 MG Fentanyl Citrate 25 mcg ONCE ONCE IVP 08/27/22 21:00 08/27/22 21:01 DC 08/27/22 20:58 25 MCG Ondansetron HCl 4 mg ONCE ONCE IVP 08/27/22 21:00 08/27/22 21:01 DC 08/27/22 20:58 4 MG Vital Signs/I&O 08/27/22 08/27/22 20:36 21:07 Pulse 84 Resp 16 B/P (MAP) 103/59 (74) Pulse Ox 96 O2 Delivery Nasal Cannula O2 Flow Rate 3.00 Blood Pressure Mean: 74 Progress Progress Note : Progress Note Patient re-evaluated after labs and imaging and EKG. She received a little fentanly and zofran along with her aspirin. She did drop her blood pressure into the 80's systolic and became a little hypoxic on RA to 88%. 1L NS infusing with resolution of BP. O2 applied at 2L - sats 96%. Patient became pain free. Advised of elevated troponin and need for admission. Her CXR does show right sided pleural effusion (she had drained back in November). and she are agreeable with admission and consult to Dr Cuevas. Dr Cuevas requested fluids and Lovenox. First dose given in ED. Initial ECG Impression Date: Aug 27, 2022 Initial ECG Impression Time: 20:42 Initial ECG Rate: 87 Initial ECG Rhythm: A Fib/Flutter Initial ECG Impression: Atrial Fibrillation Comment inverted T waves lateral leads; no ST elevation or depression Diagnostic Imaging Diagonstic Imaging: Xray Plain Films/CT/US/NM/MRI: chest Comments [facility]. [place], [place] NAME: MICAHEL BLACKMAN [facility] REC#: [id number] PT STATUS: REG ER : 1940 PHYSICIAN: FREDIS CUELLAR MD ADMIT DATE: 08/27/22/ER Signed Date of Exam:08/27/22 CHEST 1 VIEW, AP/PA ONLY EXAMINATION: Chest 1 view. HISTORY: Chest pain. COMPARISON: 12/09/2020. FINDINGS: Heart size and pulmonary vasculature are normal. There are patchy opacities within the lower lungs, bilaterally. There is a small right pleural effusion. No pneumothorax. The osseous structures are intact. IMPRESSION: Small right pleural effusion with bibasilar atelectasis or consolidation. Dictated by: Dictated on workstation # [id number] Dict: 08/27/222117 Trans: 08/27/222152 [facility] [id number] Interpreted by: RUBA NAGEL DO Electronically signed by: RUBA NAGEL DO 08/27/222152 Departure Communication (Admissions) Time/Spoke to Admitting Phy: 21:[address] Bryant Time/Spoke to Consulting Phy: 21:[address] Cuevas Impression Primary Impression: NSTEMI (non-ST elevated myocardial infarction) Additional Impressions: Afib Qualified Codes: I48.11 - Longstanding persistent atrial fibrillation Chronic anticoagulation Disposition: ADMITTED INPATIENT Condition: Stable Admissions Decision to Admit Reason: Admit from ER (General) Decision to Admit/Date: Aug 27, 2022 Time/Decision to Admit Time: 22:00 Departure-Patient Inst. Referrals: BRAULIO GANDHI MD (PCP/Family) Primary Care Physician Copy Copies To 1: BRAULIO GANDIH MD, KATHRYN M MD Aug 27, 2022 20:49
[2022-08-27 20:58] LABS: BASOPHILS % (AUTO) 0 % (0-10); EOSINOPHILS # (AUTO) 0.1 10^3/uL (0.0-0.3); EOSINOPHILS % (AUTO) 1 % (0-10); HEMATOCRIT 40 % (35-52); HEMOGLOBIN 13.4 g/dL (11.5-16.0); LYMPHOCYTES # (AUTO) 1.4 10^3/uL (1.0-4.0); LYMPHOCYTES % (AUTO) 14 % (12-44); MEAN CORPUSCULAR HEMOGLOBIN 33 pg (25-34); MEAN CORPUSCULAR HGB CONC 34 g/dL (32-36); MEAN CORPUSCULAR VOLUME 98 fL (80-99); MEAN PLATELET VOLUME 9.4 fL (9.0-12.2); MONOCYTES # (AUTO) 0.7 10^3/uL (0.0-1.0); MONOCYTES % (AUTO) 8 % (0-12); NEUTROPHILS # (AUTO) 7.1 10^3/uL (1.8-7.8); NEUTROPHILS % (AUTO) 76 % (42-75); PLATELET COUNT 174 10^3/uL (130-400); WHITE BLOOD COUNT 9.4 10^3/uL (4.3-11.0)
[2022-08-27] MEDS ORDERED: ASPIRIN 81 MG CHEW (CHILDREN'S ASA) PO ONE (21:00)
[2022-08-27] MEDS ORDERED: ONDANSETRON 4 MG/2 ML (SDV) Z0FRAN IVP ONE (21:00)
[2022-08-27] MEDS ORDERED: NS IV 1000 ML 1,000 ML IV SCH (21:00)
[2022-08-27] MEDS ORDERED: fentaNYL INJ 100 MCG/2 ML AMP IVP ONE (21:00)
[2022-08-27 21:02] LABS: INR 1.3 (0.8-1.4); PROTHROMBIN TIME PATIENT 16.3 SEC (12.2-14.7)
[2022-08-27 21:03] LABS: ALBUMIN 4.1 GM/DL (3.2-4.5); POTASSIUM 3.2 MMOL/L (3.6-5.0)
[2022-08-27 21:04] LABS: CALCIUM 9.1 MG/DL (8.5-10.1)
[2022-08-27 21:06] LABS: TOTAL PROTEIN 7.1 GM/DL (6.4-8.2)
[2022-08-27 21:07] LABS: BILIRUBIN,TOTAL 0.6 MG/DL (0.1-1.0)
[2022-08-27 21:09] LABS: CREATININE SERUM 0.69 MG/DL (0.60-1.30)
[2022-08-27 21:12] LABS: MAGNESIUM 1.8 MG/DL (1.6-2.4)
--- NOTE | 2022-08-27 21:20 | Diagnostic Imaging Report ---
EXAMINATION: Chest 1 view. HISTORY: Chest pain. COMPARISON: 12/09/2020. FINDINGS: Heart size and pulmonary vasculature are normal. There are patchy opacities within the lower lungs, bilaterally. There is a small right pleural effusion. No pneumothorax. The osseous structures are intact. IMPRESSION: Small right pleural effusion with bibasilar atelectasis or consolidation. Dictated by: Dictated on workstation # [id number]
[2022-08-27] MEDS ORDERED: ENOXAPARIN 60 MG/0.6 ML (LOVENOX) SYR SC ONE (22:00)
[2022-08-27 23:15] VITALS: BP 94/66
[2022-08-27] MEDS ORDERED: RT-ALBUTEROL/IPRATROPIUM 3 ML (DUONEB) VIAL INH PRN (23:30)
[2022-08-27] MEDS: NS IV 1000 ML 1,000 ML IV SCH (23:31)
[2022-08-28] VITALS (13 sets, daily range): BP systolic 92–107; BP diastolic 53–63
[2022-08-28] MEDS ORDERED: ACETAMINOPHEN 500 MG TAB (TYLENOL) PO PRN ×2 (05:15→06:15)
[2022-08-28] MEDS ORDERED: ACETAMINOPHEN 500 MG TAB (TYLENOL) ONE (05:17)
[2022-08-28] MEDS: PANTOPRAZOLE 40 MG (PROTONIX) TAB PO SCH (05:20)
[2022-08-28 06:34] LABS: TRIGLYCERIDES 45 MG/DL (<150); VLDL CHOLESTEROL 9 MG/DL (5-40)
[2022-08-28 06:39] LABS: CHOLESTEROL 152 MG/DL (< 200)
[2022-08-28 06:40] LABS: HDL CHOLESTEROL 75 MG/DL (40-60)
--- NOTE | 2022-08-28 09:49 | History & Physical ---
MARIAELENA DELGADO 08/28/22 9:49am: History of Present Illness History of Present Illness Reason for visit/HPI Ms. Blackman is an 82 year old female with a PMHx of CAD with stent placements in 1999 and 2005, atrial fibrillation, and peptic ulcer disease who presented to the [facility] ED on 08/27 with L-sided neck, jaw, and shoulder pain and substernal chest pain. Patient reports she was resting in bed at time of onset. Patient denies previous occurrence. Patient states after onset of symptoms she was taken to the ED. Patient denies taking aspirin or pain medication prior to arrival. Patient is being admitted to Hospitalist service for NSTEMI and atrial fibrillation with Cardiology management. This morning the patient is resting comfortably in bed. Patient states she has mild-moderate chest pain with deep inhalation. Patient denies SOA, abdominal pain, N/V/D. Date of Admission Aug 27, 2022 at 21:58 Date Seen by a Provider: Aug 28, 2022 Time Seen by a Provider: 09:20 I consulted on this patient on 08/28/22 09:39 Attending Physician Man Willis MD Admitting Physician Admitting Physician: Landon Bryant MD Attending Physician: Landon Bryant MD Consult Allergies and Home Medications Allergies Coded Allergies: iodine (Unverified Allergy, Mild, 04/08/09) Patient Home Medication List Home Medication List Reviewed: Yes Aspirin (Aspirin) 325 Mg Tablet, 325 MG PO DAILY, (Reported) Entered as Reported by: GREY MEJIA on 12/06/20 1214 Carvedilol (Carvedilol) 12.5 Mg Tablet, 12.5 MG PO BID, (Reported) Entered as Reported by: GREY MEJIA on 12/06/20 1214 Diltiazem HCl (Diltiazem HCl) 120 Mg Tablet, 180 MG PO DAILY, (Reported) Entered as Reported by: GREY MEJIA on 12/06/20 1214 Furosemide (Furosemide) 40 Mg Tablet, 60 MG PO DAILY, (Reported) Entered as Reported by: GREY MEJIA on 12/06/20 1214 Pantoprazole Sodium (Protonix) 40 Mg Tablet.dr, 40 MG PO DAILY Prescribed by: DOROTHEA CHAVARRIA on 12/10/20 1515 Potassium Gluconate (Potassium) 99 Mg Tablet, 99 MG PO DAILY, (Reported) Entered as Reported by: GREY MEJIA on 12/06/20 1214 Rivaroxaban (Xarelto) 20 Mg Tablet, 20 MG PO DAILY, (Reported) Entered as Reported by: GREY MEJIA on 12/06/20 1214 Simvastatin (Simvastatin) 40 Mg Tablet, 40 MG PO DAILY, (Reported) Entered as Reported by: GREY MEJIA on 12/06/20 1214 Sucralfate (Carafate) 1 Gm Tablet, 1 GM PO QID Prescribed by: DOROTHEA CHAVARRIA on 12/10/20 1515 Past Hcnxkrq-Jzjbxm-Hwgmth Hx Patient Social History Marrital Status: Tobacco Use?: No Smoking Status: Former Smoker Smokeless Tobacco Frequency: Never a User Use of E-Cig and/or Vaping dev: No Substance use?: No Alcohol Use?: Yes (2 daily) Additional alcohol type: NIGHTLY COCKTAIL Alcohol Frequency: Daily Pt feels they are or have been: No Immunizations Up To Date Date of Influenza Vaccine: May 29, 2022 First/Initial COVID19 Vaccinat: 09/19/2020 Second COVID19 Vaccination Benny: 10/19/2020 Tetanus Booster (TDap): Unknown Current Status status: No status: No Communicates: Verbally Primary Language: Georgian Preferred Spoken Language: Georgian Is interpretation needed?: No Sensory deficits: Hearing impairment Implanted or Applied Medical D: Stents Past Medical History Surgeries: Coronary Stent (1999, 2005) Atrial Fibrillation Gastrointestinal Bleed, Ulcer Blood Disorders: Yes Family Medical History Heart Disease (mother and father) Review of Systems Constitutional: no symptoms reported EENTM: no symptoms reported Respiratory: no symptoms reported Cardiovascular: chest pain (substernal pain with deep inhalation) Gastrointestinal: no symptoms reported; No abdominal pain, No constipation, No diarrhea, No nausea, No vomiting Genitourinary: no symptoms reported : No Musculoskeletal: no symptoms reported Skin: no symptoms reported Psychiatric/Neurological: No Symptoms Reported; Denies Headache All Other Systems Reviewed Negative Unless Noted: Yes Physical Exam Vital Signs Vital Signs - First Documented 08/27/22 08/27/22 08/27/22 20:36 21:07 23:15 Temp 36.6 Pulse 84 Resp 16 B/P (MAP) 103/59 (74) Pulse Ox 96 O2 Delivery Nasal Cannula O2 Flow Rate 3.00 Capillary Refill : Height, Weight, BMI Height: 5'2.00" Weight: 100lbs. oz. 45.803759mx; 18.80 BMI Method:Estimated General Appearance: No Apparent Distress, WD/WN Respiratory: Lungs Clear, Normal Breath Sounds, No Accessory Muscle Use, No Respiratory Distress Cardiovascular: No Edema, No Murmur, Irregularly Irregular Gastrointestinal: Normal Bowel Sounds, Non Tender, Soft Extremity: No Pedal Edema Neurologic/Psychiatric: Alert, Oriented x3, No Motor/Sensory Deficits, Normal Mood/Affect Skin: Normal Color, Warm/Dry Comments NAME: MICHAEL BLACKMAN [facility] REC#: [id number] PT STATUS: REG ER : 1940 PHYSICIAN: FREDIS CUELLAR MD ADMIT DATE: 08/27/22/ER Signed Date of Exam:08/27/22 CHEST 1 VIEW, AP/PA ONLY EXAMINATION: Chest 1 view. HISTORY: Chest pain. COMPARISON: 12/09/2020. FINDINGS: Heart size and pulmonary vasculature are normal. There are patchy opacities within the lower lungs, bilaterally. There is a small right pleural effusion. No pneumothorax. The osseous structures are intact. IMPRESSION: Small right pleural effusion with bibasilar atelectasis or consolidation. Dictated by: Dictated on workstation # [id number] Dict: 08/27/222117 Trans: 08/27/222152 [facility] [id number] Interpreted by: RUBA NAGEL DO Electronically signed by: RUBA NAGEL DO 08/27/222152 Assessment/Plan Assessment and Plan 1. NSTEMI, atrial fibrillation -Appreciate plan per Cardiology -ASA 81mg PO qd -Lovenox 50mg SC for DVT, PE, and stroke prophylaxis, first dose administered in the ED on 08/27 -NS fluids running -Atorvastatin 20mg PO HS for secondary prevention of CAD -Diltiazem 100mg PO qd for a fib management 2. R-sided pleural effusion -Continue to monitor patient disposition and supplemental O2 requirements 3. Peptic ulcer disease -Resume home medication Protonix 40mg PO qd 4. Pain management -Tylenol 1000mg PO Q6H PRN for mild-moderate pain 5. Hypokalemia of 3.2 on 08/28 -Replace with KCl 40meq PO once -Monitor K with AM BMP Admission Diagnosis Admission Status: Observation Reason for Inpatient Admission: NSTEMI, atrial fibrillation Clinical Quality Measures AMI/AHF: ASA po Prior to arrival: COLLIN Minor MD 08/28/22 12:36pm: Allergies and Home Medications Allergies Coded Allergies: iodine (Unverified Allergy, Mild, 04/08/09) Patient Home Medication List Aspirin (Aspirin) 325 Mg Tablet, 325 MG PO DAILY, (Reported) Entered as Reported by: GREY MEJIA on 12/06/20 1214 Carvedilol (Carvedilol) 12.5 Mg Tablet, 12.5 MG PO BID, (Reported) Entered as Reported by: GREY MEJIA on 12/06/20 121 Diltiazem HCl (Diltiazem HCl) 120 Mg Tablet, 180 MG PO DAILY, (Reported) Entered as Reported by: GREY MEJIA on 12/06/20 121 Furosemide (Furosemide) 40 Mg Tablet, 60 MG PO DAILY, (Reported) Entered as Reported by: GREY MEJIA on 12/06/20 1214 Pantoprazole Sodium (Protonix) 40 Mg Tablet.dr, 40 MG PO DAILY Prescribed by: DOROTHEA CHAVARRIA on 12/10/20 151 Potassium Gluconate (Potassium) 99 Mg Tablet, 99 MG PO DAILY, (Reported) Entered as Reported by: GREY MEJIA on 12/06/20 121 Rivaroxaban (Xarelto) 20 Mg Tablet, 20 MG PO DAILY, (Reported) Entered as Reported by: GREY MEJIA on 12/06/20 121 Simvastatin (Simvastatin) 40 Mg Tablet, 40 MG PO DAILY, (Reported) Entered as Reported by: GREY MEJIA on 12/06/20 121 Sucralfate (Carafate) 1 Gm Tablet, 1 GM PO QID Prescribed by: DOROTHEA CHAVARRIA on 12/10/20 1515 Assessment/Plan Assessment and Plan Patient with history of coronary artery disease who presented to the ER due to neck pain and nausea and vomiting with an elevated troponin. Cardiology has been consulted and is planning to take her to the Surgical Services Manager. I saw her just prior to being taken to the Surgical Services Manager and she reports no symptoms at this time. He did report to my medical student still having some palpitations with deep breath. Informed patient that further hospital course will be determined by findings on cardiac cath. Supervisory-Addendum Brief Verification & Attestation Participated in pt care: history, MDM, physical Personally performed: exam, history, MDM, supervision of care Care discussed with: Medical Student Procedures: n/a Results interpretation: Verified all documentation Verification and Attestation of Medical Student E/M Service A medical student performed and documented this service in my presence. I reviewed and verified all information documented by the medical student and made modifications to such information, when appropriate. I personally performed the physical exam and medical decision making. Collin Ferrara, Aug 28, 2022,12:34 MARIAELENA DELGADO Aug 28, 2022 9:49 am COLLIN FERRARA MD Aug 28, 2022 12:36 pm
[2022-08-28] MEDS ORDERED: ENOXAPARIN 60 MG/0.6 ML (LOVENOX) SYR SC SCH (10:00)
--- NOTE | 2022-08-28 10:37 | Consultation-Cardiology ---
HPI-Cardiology Cardiology Consultation Date of Consultation 08/28/22 Date of Admission Time Seen by Provider: 10:34 Indication: Non-ST elevation myocardial infarction HPI 82-year-old lady with history of coronary artery disease, had multiple interventions in the past last intervention was in 2005. Has chronic atrial fibrillation maintained on Xarelto. She started to have chest pain described as dull in nature in the retrosternal area radiating to the neck and jaw. Started last night. Came into the emergency room and noted to have elevation in troponin. Overnight continue to have on and off episodes of chest pain last episode occurred this morning. She denied any shortness of breath. No palpitation. No syncope. Follows with Dr. Castellanos in [facility]. No recent checkup with her head neck surgeon at least for the past few years. Home Medications & Allergies Allergies: Coded Allergies: iodine (Unverified Allergy, Mild, 04/08/09) Home Medication List Reviewed: Yes [id number] Hx Patient Social History Marital Status: Smoking Status: Former Smoker 2nd Hand Smoke Exposure: No Recent Hopitalizations: Yes Have you traveled recently?: No Alcohol Use?: Yes (2 daily) Immunizations Up To Date Date of Influenza Vaccine: May 29, 2022 Past Medical History Discussed below Family Medical History Significant Family History: Heart Disease (mother and father) Family Medical Hx Noncontributory Review of Systems-General Review of Systems Constitutional: no symptoms reported, see HPI EENTM: see HPI, no symptoms reported Respiratory: see HPI; No cough, No dyspnea on exertion, No hemoptysis, No orthopnea, No phlegm, No short of breath, No stridor, No wheezing, No other Cardiovascular: see HPI, chest pain (substernal pain with deep inhalation); No edema, No Hx of Intervention, No palpitations, No syncope, No vascular heart diseas, No other Gastrointestinal: no symptoms reported, see HPI; No abdominal pain, No constipation, No diarrhea, No nausea, No vomiting Genitourinary: no symptoms reported, see HPI : No Musculoskeletal: no symptoms reported, see HPI Skin: no symptoms reported, see HPI Psychiatric/Neurological: No Symptoms Reported, See HPI; Denies Headache All Other Systems Reviewed Negative Unless Noted: Yes Reviewed Test Results Reviewed Test Results Lab Laboratory Tests Test 08/27/22 20:40 12/30/22 05:10 Range/Units White Blood Count 9.4 4.3-11.0 10^3/uL Red Blood Count 4.08 3.80-5.11 10^6/uL Hemoglobin 13.4 11.5-16.0 g/dL Hematocrit 40 35-52 % Mean Corpuscular Volume 98 80-99 fL Mean Corpuscular Hemoglobin 33 25-34 pg Mean Corpuscular Hemoglobin Concent 34 32-36 g/dL Red Cell Distribution Width 13.1 10.0-14.5 % Platelet Count 174 130-400 10^3/uL Mean Platelet Volume 9.4 9.0-12.2 fL Immature Granulocyte % (Auto) 0 % Neutrophils (%) (Auto) 76 H 42-75 % Lymphocytes (%) (Auto) 14 12-44 % Monocytes (%) (Auto) 8 0-12 % Eosinophils (%) (Auto) 1 0-10 % Basophils (%) (Auto) 0 0-10 % Neutrophils # (Auto) 7.1 1.8-7.8 10^3/uL Lymphocytes # (Auto) 1.4 1.0-4.0 10^3/uL Monocytes # (Auto) 0.7 0.0-1.0 10^3/uL Eosinophils # (Auto) 0.1 0.0-0.3 10^3/uL Basophils # (Auto) 0.0 0.0-0.1 10^3/uL Immature Granulocyte # (Auto) 0.0 0.0-0.1 10^3/uL Prothrombin Time 16.3 H 12.2-14.7 SEC INR Comment 1.3 0.8-1.4 Activated Partial Thromboplast Time 37 H 24-35 SEC Sodium Level 136 135-145 MMOL/L Potassium Level 3.2 L 3.6-5.0 MMOL/L Chloride Level 100 98-107 MMOL/L Carbon Dioxide Level 24 21-32 MMOL/L Anion Gap 12 5-14 MMOL/L Blood Urea Nitrogen 6 L 7-18 MG/DL Creatinine 0.69 0.60-1.30 MG/DL Estimat Glomerular Filtration Rate 86 BUN/Creatinine Ratio 9 Glucose Level 102 70-105 MG/DL Calcium Level 9.1 8.5-10.1 MG/DL Corrected Calcium 9.0 8.5-10.1 MG/DL Magnesium Level 1.8 1.6-2.4 MG/DL Total Bilirubin 0.6 0.1-1.0 MG/DL Aspartate Amino Transf (AST/SGOT) 39 H 5-34 U/L Alanine Aminotransferase (ALT/SGPT) 25 0-55 U/L Alkaline Phosphatase 75 40-136 U/L Troponin I 0.054 H 0.041 H <0.028 NG/ML Total Protein 7.1 6.4-8.2 GM/DL Albumin 4.1 3.2-4.5 GM/DL Triglycerides Level 45 <150 MG/DL Cholesterol Level 152 < 200 MG/DL LDL Cholesterol Direct 60 1-129 MG/DL VLDL Cholesterol 9 5-40 MG/DL HDL Cholesterol 75 H 40-60 MG/DL Physical Exam Physical Exam Vital Signs Vital Signs - First Documented 08/27/22 08/27/22 08/27/22 20:36 21:07 23:15 Temp 36.6 Pulse 84 Resp 16 B/P (MAP) 103/59 (74) Pulse Ox 96 O2 Delivery Nasal Cannula O2 Flow Rate 3.00 Capillary Refill : Height, Weight, BMI Height: 5'2.00" Weight: 100lbs. oz. 45.487715ys; 18.80 BMI Method:Estimated General Appearance: No Apparent Distress, WD/WN Eyes: Bilateral Eye Normal Inspection, Bilateral Eye PERRL, Bilateral Eye EOMI HEENT: PERRL/EOMI Neck: Full Range of Motion, Normal Inspection, Non Tender Respiratory: Lungs Clear, Normal Breath Sounds, No Accessory Muscle Use, No Respiratory Distress Cardiovascular: No Edema, No Murmur, Irregularly Irregular Gastrointestinal: Normal Bowel Sounds, Non Tender, Soft Back: Normal Inspection, No CVA Tenderness, No Vertebral Tenderness Extremity: No Pedal Edema Neurologic/Psychiatric: Alert, Oriented x3, No Motor/Sensory Deficits, Normal Mood/Affect Skin: Normal Color, Warm/Dry Lymphatic: No Adenopathy A/P-Cardiology Admission Diagnosis Chest pain Non-ST elevation myocardial infarction Permanent atrial fibrillation Hypertension Assessment/Plan Chest pain, non-ST elevation myocardial infarction, nonspecific EKG changes. Has been having waxing and waning chest pain. Discussed the management plan recommended cardiac catheterization Coronary artery disease, history of stenting in 1999 and in 2005. No recent cardiac work-up. Planning for cardiac catheterization Persistent atrial fibrillation, probably permanent atrial fibrillation on Cardizem for rate control. Continue to monitor [id number] score 5, maintained on Xarelto as an outpatient Hypertension, currently borderline hypotensive, monitor blood pressure Hyperlipidemia, maintained on simvastatin. Ex tobaccoism, stopped smoking over 30 years ago Gastroesophageal reflux disease, maintained on pantoprazole Clinical Quality Measures AMI/AHF: ASA po Prior to arrival: SARWAT Ronquillo MD Aug 28, 2022 10:37
--- NOTE | 2022-08-28 10:38 | Cardiac Procedure Note-CS/ASA ---
Pre-Procedure Note Pre-Op Procedure Note Date of Available H&P: Aug 28, 2022 Date H&P Reviewed: Aug 28, 2022 Time H&P Reviewed: 10:37 History & Physical: H&P Reviewed, Patient Examed, No changes noted Pre-Operative Diagnosis: Non-ST elevation myocardial infarction Conscious Sedation Pre-Proced Time 10:38 ASA Score 3 For ASA 3 and 4: Consider anesthesia and medical clearance. Also, for patients with a history of failed moderate sedation consider anesthesia. Airway Lungs Heart ASA score ASA 1: a normal healthy patient ASA 2: a patient with a mild systemic disease (mid diabetes, controlled hypertension, obesity ASA 3: a patient with a severe systemic disease that limits activity (angina, COPD, prior Myocardial infarction) ASA 4: a patient with an incapacitating disease that is a constant threat to life (CHF, renal failure) ASA 5: a moribund patient not expected to survive 24 hrs. (ruptured aneurysm) ASA 6: a declared brain- patient whose organs are being harvested. For emergent operations, add the letter E after the classification Mallampati Classification Grade 3 Sedation Plan Analgesia, Amnesia, Plan communicated to team members, Discussed options with patient/fam, Discussed risks with patient/fam The patient is an appropriate candidate to undergo the planned procedure, sedation, and anesthesia. The patient immediately re-assessed prior to indication. SARWAT VELASQUEZ MD Aug 28, 2022 10:38
[2022-08-28] MEDS ORDERED: VERAPAMIL 5 MG/2 ML (CALAN) VIAL IV ONE (11:02)
[2022-08-28] MEDS ORDERED: HEParin (CATH LAB) 2,000 ML IV ONE (11:03)
[2022-08-28] MEDS ORDERED: LIDOCAINE 1% INJ 30 ML (XYLOCAINE) VIAL ONE (11:03)
[2022-08-28] MEDS ORDERED: MIDAZOLAM 5 MG/5 ML (VERSED) VIAL ONE (11:03)
[2022-08-28] MEDS ORDERED: fentaNYL INJ 100 MCG/2 ML AMP ONE (11:03)
[2022-08-28] MEDS ORDERED: HEParin 1000 UNIT/ML (10ML VIAL) FOR BOLUS ONE (11:03)
[2022-08-28] MEDS ORDERED: NS IV 1000 ML 1,000 ML ONE (11:04)
[2022-08-28] MEDS ORDERED: NITRO DRIP 25000 MCG/D5W 250 ML IV ONE (11:04)
[2022-08-28] MEDS ORDERED: diphenhydrAMINE 50 MG/ML INJ (BENADRYL) ONE (11:18)
[2022-08-28] MEDS ORDERED: methylPREDNISolone 125 MG (Solu-MEDROL) VIAL ONE (11:19)
[2022-08-28] MEDS ORDERED: NS IV 1000 ML 1,000 ML IV SCH (12:15)
[2022-08-28] MEDS ORDERED: ASPIRIN 325 MG (5 GR) TABLET ONE (12:20)
[2022-08-28] MEDS ORDERED: CLOPIDOGREL 300 MG (PLAVIX) TABLET PO ONE (12:20)
--- NOTE | 2022-08-28 12:21 | Cardiac Cath Report ---
Cardiac Cath Report Physician (s)/Valuation Consultant (s) Physician SARWAT VELASQUEZ MD Pre-Procedure Diagnosis Pre-Procedure Diagnosis: Non-ST elevation myocardial infarction Post-Procedure Note Procedure Start Date: Aug 28, 2022 Procedure Start Time: 12:16 Name of Procedure: Left heart catheterization PTCA to the LAD Findings/Procedure Note PROCEDURE NOTE: 82-year-old lady with history of coronary artery disease, multiple interventions in the past, admitted with non-ST elevation myocardial infarction, cardiac catheterization was advised. After explaining the procedure to the patient, all pros and cons were explained, all questions were answered. The patient signed the consent and then she was placed in the cardiac catheterization laboratory. Groin was prepped in SL fashion local anesthesia was used. Sheath placed in the right radial artery, Ralls catheter was advanced to the left ventricular cavity, pressure was measured, pullback LV to aorta was done, engage the right and left coronary system, angiogram was done. Patient has severe stenosis within the stent in the proximal LAD, EBU 3.5 guide was advanced, BMW wire was advanced and parked distally, received a total of 5000 units of heparin, balloon angioplasty was done using 2.5 x 20 mm trek balloon, multiple inflation were done, excellent results with no residual stenosis. Regarding the right coronary artery patient has multiple lesions that will be staged to be done at a tertiary care center. At the end of the procedure the sheath was removed. Vascular band was used FINDINGS: Hemodynamics LV 99/26, end-diastolic pressure of 26 Aorta 91/60 mean of 70 ANATOMY: Left Main is free of obstructive disease Left Anterior Descending has a stent in the proximal portion with 95% stenosis w ithin the stent, successful balloon angioplasty with 0% residual stenosis, preprocedure MAYTE flow was 2, postprocedure MAYTE flow was 3. Left Circumflex is moderate in size with mild disease at most 20 to 30% nonobstructive disease Right Coronary Artery is a large dominant artery, the ostium has a proximal stent with 90% stenosis at the ostium. 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 Mid right coronary artery has 50% stenosis, the right coronary artery is a dominant artery LV Gram was not done, pressure was measured PERCUTANEOUS INTERVENTION: Pre stenosis 95% Post Stenosis 0% Pre MAYTE flow 2 Post MAYTE flow 3 Dominance right coronary artery CONCLUSION: 1. 95% stenosis within the stent in the proximal LAD successful balloon angioplasty using 2.5 x 20 mm balloon with excellent results. 2. 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 Will need to be staged for an i ntervention at a later point and need to be done at a tertiary care center. 3. Mild disease in the circumflex artery 4. Elevated left ventricular end-diastolic pressure DISCUSSION AND RECOMMENDATION: I will evaluate 2D echo, patient was started on aspirin and Plavix in addition to the Xarelto. I will switch simvastatin to Lipitor to limit the interaction with Cardizem. Continue to monitor and arrange for evaluation at a tertiary care center at a later point Anesthesia Type: Conscious Sedation Estimated blood loss (mL): 15 ml Contrast Amount: 41 ml Total Radiation Dose: 169 mGy Post-Procedure Diagnosis Post-operative diagnosis: Non-ST elevation myocardial infarction Coronary artery disease Hypertension Hyperlipidemia SARWAT VELASQUEZ MD Aug 28, 2022 12:21
[2022-08-28] MEDS: ASPIRIN E.C. 81 MG (ECOTRIN) TAB PO SCH (14:59)
[2022-08-28] MEDS: NS IV 1000 ML 1,000 ML IV SCH (15:05)
[2022-08-28] MEDS ORDERED: RIVAROXABAN 20 MG TABLET (XARELTO) PO SCH ×2 (17:00)
[2022-08-29] VITALS: BP 98/57
[2022-08-29 04:00] VITALS: BP 98/55
[2022-08-29 05:51] LABS: HEMATOCRIT 37 % (35-52); HEMOGLOBIN 12.2 g/dL (11.5-16.0); MEAN CORPUSCULAR HEMOGLOBIN 33 pg (25-34); MEAN CORPUSCULAR HGB CONC 33 g/dL (32-36); MEAN CORPUSCULAR VOLUME 100 fL (80-99); MEAN PLATELET VOLUME 9.9 fL (9.0-12.2); PLATELET COUNT 155 10^3/uL (130-400); WHITE BLOOD COUNT 8.4 10^3/uL (4.3-11.0)
[2022-08-29 06:01] LABS: POTASSIUM 3.4 MMOL/L (3.6-5.0)
[2022-08-29 06:02] LABS: CALCIUM 8.4 MG/DL (8.5-10.1)
[2022-08-29 06:07] LABS: CREATININE SERUM 0.72 MG/DL (0.60-1.30)
[2022-08-29] MEDS: PANTOPRAZOLE 40 MG (PROTONIX) TAB PO SCH (06:18)
[2022-08-29 07:50] VITALS: BP 124/69
[2022-08-29] MEDS ORDERED: CLOP75TA28 PO (08:13)
[2022-08-29] MEDS ORDERED: ATOR20TA66 PO (08:13)
[2022-08-29] MEDS ORDERED: ASPI-1238 PO (08:13)
--- NOTE | 2022-08-29 08:14 | Discharge Inst-Post CATH ---
Discharge Inst-CATH/EP Problems Reviewed?: Yes Post Cardiac Cath/EP D/C Inst Follow Up/Plan Appointment with Dr Cuevas in 2-4 weeks Patient is scheduled for a cath in [place] on Wednesday09/01/2022 <b>CARDIAC CATH/EP PROCEDURE DISCHARGE INSTRUCTIONS</b> ACTIVITY * Go Home directly and rest. * Limit activity of the leg (or wrist if it was used) for 7 days including aerobics, swimming, jogging, bicycling, etc. * Restrict stair-climbing for 7 days if possible, if not, climb up with your non-cath leg, then bring together on the same step. * Avoid lifting, pushing, pulling or excessive movement of the affected extremity for 7 days. * Customary sexual activity may be resumed after 2 days-use caution not to use a position that strains or causes pain to the affected extremity. * No driving for 24 hours. * NO SMOKING. * Avoid straining for bowel movements for 7 days. * Gentle walking on level ground is allowed. * Returning to work will depend on the type of procedure and the results. Your doctor will discuss this with you. CALL YOUR DOCTOR FOR ANY OF THE FOLLOWING: *If bleeding from the puncture site occurs- Apply gentle pressure to site with clean cloth and call your doctor or EMS. * If a knot or lump forms under the skin, increases in size, or causes pain. * If bruising appears to be worsening or moving further down your leg instead of disappearing. * Temperature above 101 F. CARE OF YOUR GROIN INCISION; * Bruising or purple discoloration of the skin near the puncture site is common. * You may shower only, no bathtub bathing for 5 days. Be careful to avoid slipping as your leg may feel stiff. * If a closure device was used on your femoral artery, please see the attached guide regarding care of the device and your leg. * Leave dressing on FOR 24 hours. CARE OF YOUR WRIST INCISION; * Bruising or purple discoloration of the skin near the puncture site is common. * You may shower. * DO NOT submerge wrist. * Leave dressing on FOR 24 hours. SARWAT CUEVAS MD Aug 29, 2022 08:14
[2022-08-29] MEDS: ASPIRIN E.C. 81 MG (ECOTRIN) TAB PO SCH (08:34)
[2022-08-29] MEDS ORDERED: dilTIAZem120 MG (CARDIZEM CD) CAP PO SCH (09:00)
[2022-08-29] MEDS ORDERED: CLOPIDOGREL 75 MG (PLAVIX) TABLET PO SCH (09:00)
[2022-08-29] MEDS ORDERED: ASPIRIN E.C. 81 MG (ECOTRIN) TAB PO SCH (09:00)
--- NOTE | 2022-08-29 11:12 | Cardiology Progress Note ---
Subjective Date Seen by Provider: Aug 29, 2022 Time Seen by Provider: 11:07 Subjective/Events-last exam Patient was seen at bedside, laying down comfortably, feeling better. No new complain Review of Systems General: No Chills, No Night Sweats, No Fatigue, No Malaise, No Appetite, No Other HEENT: No Head Aches, No Visual Changes, No Eye Pain, No Ear Pain, No Dyspha barbara, No Sinus Congestion, No Post Nasal Drip, No Sore Throat, No Other Pulmonary: No Dyspnea, No Cough, No Pleuritic Chest Pain, No Other Cardiovascular: No: Chest Pain, Palpitations, Orthopnea, Paroxysmal Noc. Dyspnea, Edema, Lt Headedness, Other Objective-Cardiology Exam Last Set of Vital Signs Vital Signs 08/29/22 08/29/22 07:50 10:52 Temp 35.8 Pulse 99 Resp 19 B/P (MAP) 124/69 (87) Pulse Ox 96 O2 Delivery Room Air O2 Flow Rate 0.00 I&O Intake and Output 08/29/22 00:00 Intake Total 1360 ml Output Total 925 ml Balance 435 ml Intake Oral 360 ml IV Total 1000 ml Output Urine Total 925 ml # Voids 1 General: Alert, Oriented X3, Cooperative HEENT: Atraumatic, PERRLA Neck: Supple, No JVD, No Thyromegaly Lungs: Clear to Auscultation, Normal Air Movement Heart: Regular Rate, Normal S1, Normal S2, No Murmurs Abdomen: Normal Bowel Sounds, Soft, No Tenderness, No Hepatosplenomegaly, No Masses Extremities: No Clubbing, No Cyanosis, No Edema, Normal Pulses, No Tenderness/Swelling Skin: No Rashes, No Breakdown, No Significant Lesion Neuro: Normal Gait, Normal Speech, Strength at 5/5 X4 Ext, Normal Tone, Sensation Intact Psych/Mental Status: Mental Status NL, Mood NL Results Lab Laboratory Tests 08/29/22 05:35 A/P-Cardiology Admission Diagnosis Chest pain Non-ST elevation myocardial infarction Permanent atrial fibrillation Hypertension Assessment/Plan Chest pain, non-ST elevation myocardial infarction, nonspecific EKG changes. Status post cardiac catheterization done on August 28, 2022 with balloon angioplasty for in-stent restenosis in the LAD. Reporting improvement. Coronary artery disease, history of stenting in 1999 and in 2005. Cardiac catheterization done on August 28, 2022, severe in-stent restenosis in the proximal LAD with balloon angioplasty with excellent results. Patient has severe in-stent restenosis in the proximal/ostial right coronary artery and aneurysmal dilatation distally followed by 60% stenosis at the bifurcation. Arrangement for angiogram and intervention at [facility] was made for September 01, 2022 Patient was educated on taking aspirin and Plavix. Arrange for follow-up in 2 weeks Persistent atrial fibrillation, probably permanent atrial fibrillation on Cardizem for rate control. Continue to monitor [id number] score 5, maintained on Xarelto as an outpatient Hypertension, currently borderline hypotensive, monitor blood pressure Hyperlipidemia, maintained on simvastatin. Ex tobaccoism, stopped smoking over 30 years ago Gastroesophageal reflux disease, maintained on pantoprazole SARWAT VELASQUEZ MD Aug 29, 2022 11:12
[2022-08-29] MEDS: NS IV 1000 ML 1,000 ML IV SCH (11:20)
[2022-08-29 11:48] VITALS: BP 113/65
[2022-08-29 12:10] VITALS: BP 113/65
--- NOTE | 2022-08-29 13:01 | Discharge Summary ---
DALE DELGADOA 08/29/22 1257: Discharge Summary Hospital Course Was the Problem List Reviewed?: Yes Hospital Course Date of Admission: Aug 28, 2022 at 12:36 Admission Diagnosis : NSTEMI, atrial fibrillation Family Physician/Provider: Man Willis MD Date of Discharge: 08/29/22 Discharge Diagnosis: [ NSTEMI, atrial fibrillation] Hospital Course: [Ms. Cooney is an 82 year old female with a PMHx of CAD with stent placements in 1999 and 2005, atrial fibrillation, and peptic ulcer disease who presented to the [facility] ED on 08/27 with L-sided neck, jaw, and shoulder pain and substernal chest pain. Patient states after onset of symptoms she was taken to the ED. Patient was admitted to Hospitalist service for NSTEMI and atrial fi brillation with Cardiology management. On 08/28 patient had cardiac catheterization with Dr. Cuevas. Ballon angioplasty was conducted in the proximal LAD stent. Patient tolerated the procedure well. On 08/29 patient continues to remain in stable condition and is safe for discharge. Discharge instructions have been provided per Dr. Cuevas. This is a brief summary of the patient's stay, full disclosure of the patient's hospital course can be found in her EMR.] Labs and Pending Lab Test: Laboratory Tests 08/29/22 05:35: White Blood Count 8.4, Red Blood Count 3.70L, Hemoglobin 12.2, Hematocrit 37, Mean Corpuscular Volume 100H, Mean Corpuscular Hemoglobin 33, Mean Corpuscular Hemoglobin Concent 33, Red Cell Distribution Width 13.6, Platelet Count 155, Mean Platelet Volume 9.9, Sodium Level 137, Potassium Level 3.4L, Chloride Level 106, Carbon Dioxide Level 22, Anion Gap 9, Blood Urea Nitrogen 17, Creatinine 0.72, Estimat Glomerular Filtration Rate 83, BUN/Creatinine Ratio 24, Glucose Level 223H, Calcium Level 8.4L Home Meds Active Aspirin EC (Aspirin) 81 Mg Tablet. 81 Mg PO DAILY Atorvastatin Calcium 20 Mg Tablet 20 Mg PO HS Clopidogrel (Clopidogrel Bisulfate) 75 Mg Tablet 75 Mg PO DAILY Carafate (Sucralfate) 1 Gm Tablet 1 Gm PO QID Protonix (Pantoprazole Sodium) 40 Mg Tablet. 40 Mg PO DAILY 30 Days Reported Xarelto (Rivaroxaban) 20 Mg Tablet 20 Mg PO DAILY Diltiazem HCl 120 Mg Tablet 180 Mg PO DAILY Potassium (Potassium Gluconate) 99 Mg Tablet 99 Mg PO DAILY Furosemide 40 Mg Tablet 60 Mg PO DAILY Carvedilol 12.5 Mg Tablet 12.5 Mg PO BID Discharge Instructions Discharge Diet: No Restrictions Activity as Tolerated: Yes Discharge Physical Examination Vital Signs Vital Signs Date Time Temp Pulse Resp B/P (MAP) Pulse Ox O2 Delivery O2 Flow Rate FiO2 08/29/22 12:10 36.9 83 19 113/65 98 Room Air 0.00 General Appearance: No Apparent Distress, WD/WN Respiratory: Lungs Clear, Normal Breath Sounds, No Accessory Muscle Use, No R espiratory Distress Cardiovascular: Irregularly Irregular Gastrointestinal: Normal Bowel Sounds, Non Tender, Soft Extremity: No Pedal Edema Skin: Normal Color, Warm/Dry Neurologic/Psychiatric: Alert, Oriented x3, Normal Mood/Affect Allergies: Coded Allergies: iodine (Unverified Allergy, Mild, 04/08/09) Discharge Summary Date of Admission Aug 28, 2022 at 12:36 Date of Discharge Aug 29, 2022 at 12:10 Discharge Date: Aug 29, 2022 Discharge Time: 11:30 Admission Diagnosis NSTEMI, atrial fibrillation Consults/Procedures Procedures Cardiac catheterization with balloon angioplasty of the proximal LAD stent Discharge Diagnosis NSTEMI s/p cardiac catheterization with balloon angioplasty, atrial fibrillation Clinical Quality Measures AMI/AHF: ASA po Prior to arrival: No COLLIN FERRARA MD 08/29/22 1331: Discharge Summary Hospital Course Assessment/Pt Instructions see DC instruction Discharge Planning: >30 minutes discharge planning Discharge Physical Examination Allergies: Coded Allergies: iodine (Unverified Allergy, Mild, 04/08/09) Progress Note Addendum Progress Notes/Assess & Plan Date Seen 08/29/22 Time Seen by Provider: 11:30 Physician Addendum Addendum Verification and Attestation of Medical Student E/M Service A medical student performed and documented this service in my presence. I reviewed and verified all information documented by the medical student and made modifications to such information, when appropriate. I personally performed the physical exam and medical decision making. Collin Ferrara, Aug 29, 2022,13:31 Progress 13:31 MARIAELENA DELGADO Aug 29, 2022 12:57 COLLIN FERRARA MD Aug 29, 2022 13:31
== END 2022-08-29 12:10 | disposition home or self-care (01) | DRG 251 ==
LOC: EDUNIT# 20:31 → ER 20:32 → UNDOADMOB 21:58 → CSD 21:58 → OBSVTOIN 08-28 12:36 → INTOOBSV 08-28 12:36 → UNDODISIN 08-29 12:10
PROVIDERS: ADMIT Internal Medicine; ATTEND Internal Medicine
PROC: 02703ZZ Dilation of Coronary Artery, One Artery, Percutaneous Approach (ICD-10-PCS; principal; 2022-08-28)
PROC: 4A023N7 Measurement of Cardiac Sampling and Pressure, Left Heart, Percutaneous Approach (ICD-10-PCS; 2022-08-28)
PROC: B2111ZZ Fluoroscopy of Multiple Coronary Arteries using Low Osmolar Contrast (ICD-10-PCS; 2022-08-28)
PROC: B2151ZZ Fluoroscopy of Left Heart using Low Osmolar Contrast (ICD-10-PCS; 2022-08-28)
DX: I21.4 Non-ST elevation (NSTEMI) myocardial infarction (principal); I48.21 Permanent atrial fibrillation; T82.855A Stenosis of coronary artery stent, initial encounter; J90 Pleural effusion, not elsewhere classified; I25.10 Atherosclerotic heart disease of native coronary artery without angina pectoris; K27.9 Peptic ulcer, site unspecified, unspecified as acute or chronic, without hemorrhage or perforation; E87.6 Hypokalemia; I10 Essential (primary) hypertension; E78.5 Hyperlipidemia, unspecified; K21.9 Gastro-esophageal reflux disease without esophagitis; I25.41 Coronary artery aneurysm; H91.90 Unspecified hearing loss, unspecified ear; Z87.891 Personal history of nicotine dependence; Z79.82 Long term (current) use of aspirin; Z79.899 Other long term (current) drug therapy; Z79.01 Long term (current) use of anticoagulants; Z87.19 Personal history of other diseases of the digestive system; Z95.5 Presence of coronary angioplasty implant and graft
CPT/HCPCS: 36415; 71045; 80048; 80053; 80061; 83735; 84484; 85025; 85027; 85610; 85730; 93005; 93041; 93306; 93458; 94664; 94760; 96361; 96372; 96374; 96375

== ENCOUNTER 2022-10-07 12:13 | Emergency (ER) | payer MEDICARE ==
[~2022-10-07] VITALS: Ht 157.5 cm; Wt 40.8 kg
--- NOTE | 2022-10-07 12:24 | ED General ---
General Chief Complaint: Dizziness/Syncope Stated Complaint: BRAIN BLEED Source of Information: Patient, Family History of Present Illness Date Seen by Provider: Oct 07, 2022 Time Seen by Provider: 12:13 Initial Comments Patient is an 82-year-old female with a history of coronary artery disease chronically anticoagulated on Xarelto and Plavix who presents to the emergency department from CT here at the hospital chief complaint of abnormal CT concerning for head bleed. Patient was ordered an outpatient CT by her primary care physician for generalized weakness, memory problems. Patient denies any recent falls or trauma. She was in the hospital 1 month ago for NSTEMI and also went to [place] at the beginning of August 2022 and had [address] Terrazas. She denies illness such as fevers, chills, productive cough. No shortness of breath. No nausea or vomiting. No bowel or bladder problems. Her is with her and provides some of the history. He states that he feels like she has had problems with balance and coordination. She currently denies headache, visual problems, speech difficulties or swallowing difficulties. Radiologist called report of left temporal lobe intraparenchymal hemorrhage with mild surrounding vasogenic edema. I communicated this information to the patient and her who is at the bedside. Advised that if there is bed availability we will transport her to [place] where there is neurosurgical care. They are agreeable Timing/Duration: 1 Week Severity: Moderate Associated Systoms: No Headaches, No Loss of Appetite; Weakness (mild) Allergies and Home Medications Allergies Coded Allergies: iodine (Unverified Allergy, Mild, 04/08/09) Patient Home Medication List Home Medication List Reviewed: Yes Aspirin (Aspirin EC) 81 Mg Tablet.dr, 81 MG PO DAILY Prescribed by: SARWAT VELASQUEZ on 08/29/22812 Atorvastatin Calcium (Atorvastatin Calcium) 20 Mg Tablet, 20 MG PO HS Prescribed by: SARWAT VELASQUEZ on 08/29/22812 Carvedilol (Carvedilol) 12.5 Mg Tablet, 12.5 MG PO BID, (Reported) Entered as Reported by: GREY MEJIA on 12/06/20 1214 Clopidogrel Bisulfate (Clopidogrel) 75 Mg Tablet, 75 MG PO DAILY Prescribed by: SARWAT VELASQUEZ on 08/29/22812 Diltiazem HCl (Diltiazem HCl) 120 Mg Tablet, 180 MG PO DAILY, (Reported) Entered as Reported by: GREY MEJIA on 12/06/20 1214 Furosemide (Furosemide) 40 Mg Tablet, 60 MG PO DAILY, (Reported) Entered as Reported by: GREY MEJIA on 12/06/20 1214 Pantoprazole Sodium (Protonix) 40 Mg Tablet.dr, 40 MG PO DAILY Prescribed by: DOROTHEA CHAVARRIA on 12/10/20 151 Potassium Gluconate (Potassium) 99 Mg Tablet, 99 MG PO DAILY, (Reported) Entered as Reported by: GREY MEJIA on 12/06/20 1214 Rivaroxaban (Xarelto) 20 Mg Tablet, 20 MG PO DAILY, (Reported) Entered as Reported by: GREY MEJIA on 12/06/20 121 Sucralfate (Carafate) 1 Gm Tablet, 1 GM PO QID Prescribed by: DOROTHEA CHAVARRIA on 12/10/201514 Review of Systems Review of Systems Constitutional: see HPI EENTM: no symptoms reported Respiratory: no symptoms reported Cardiovascular: no symptoms reported Gastrointestinal: no symptoms reported Genitourinary: no symptoms reported Musculoskeletal: no symptoms reported Skin: no symptoms reported Psychiatric/Neurological: Other (memory issues; "don't feel normal") Past Yfvbyuj-Rjleob-Dyjryn Hx Immunizations Up To Date First/Initial COVID19 Vaccinat: 09/19/2020 Second COVID19 Vaccination Benny: 10/19/2020 Third COVID19 Vaccination Date: YES Past Medical History Surgery/Hospitalization HX: STENTS HTN, HLD Surgeries: Yes Coronary Stent Respiratory: No Atrial Fibrillation Reproductive Disorders: No Gastrointestinal Bleed, Ulcer Musculoskeletal: No Endocrine: No Psychosocial: No Blood Disorders: Yes Family Medical History Heart Disease Physical Exam Vital Signs Vital Signs - First Documented 10/07/22 12:13 Temp 36.6 Pulse 77 Resp 20 B/P (MAP) 154/80 (104) Pulse Ox 100 O2 Delivery Room Air Capillary Refill : Height, Weight, BMI Height: 5'2.00" Weight: 100lbs. oz. 45.255351ho; 18.64 BMI Method:Estimated General Appearance: No Apparent Distress, Thin Eyes: Bilateral Eye Normal Inspection, Bilateral Eye PERRL, Bilateral Eye EOMI HEENT: PERRL/EOMI Neck: Normal Inspection Respiratory: Lungs Clear, Normal Breath Sounds, No Accessory Muscle Use, No Respiratory Distress Cardiovascular: Irregularly Irregular (rate 70's) Gastrointestinal: Normal Bowel Sounds, Soft, Tenderness (mild tenderness to palpation epigastrum) Extremity: Normal Inspection, Normal Range of Motion Neurologic/Psychiatric: Alert, Oriented x3, No Motor/Sensory Deficits, Normal Mood/Affect, frame operator II-XII Norm as Tested Skin: Normal Color, Warm/Dry Progress/Results/Core Measures Suspected Sepsis SIRS Temperature: Pulse: Respiratory Rate: Laboratory Tests 10/07/22 12:20: White Blood Count 8.9 Blood Pressure / Mean: Laboratory Tests 10/07/22 12:20: Platelet Count 193 Results/Orders Lab Results Laboratory Tests Test 10/07/22 12:20 Range/Units White Blood Count 8.9 4.3-11.0 10^3/uL Red Blood Count 3.59 L 3.80-5.11 10^6/uL Hemoglobin 12.0 11.5-16.0 g/dL Hematocrit 36 35-52 % Mean Corpuscular Volume 100 H 80-99 fL Mean Corpuscular Hemoglobin 33 25-34 pg Mean Corpuscular Hemoglobin Concent 33 32-36 g/dL Red Cell Distribution Width 13.3 10.0-14.5 % Platelet Count 193 130-400 10^3/uL Mean Platelet Volume 9.0 9.0-12.2 fL Immature Granulocyte % (Auto) 0 % Neutrophils (%) (Auto) 78 H 42-75 % Lymphocytes (%) (Auto) 10 L 12-44 % Monocytes (%) (Auto) 10 0-12 % Eosinophils (%) (Auto) 1 0-10 % Basophils (%) (Auto) 0 0-10 % Neutrophils # (Auto) 7.0 1.8-7.8 10^3/uL Lymphocytes # (Auto) 0.9 L 1.0-4.0 10^3/uL Monocytes # (Auto) 0.9 0.0-1.0 10^3/uL Eosinophils # (Auto) 0.1 0.0-0.3 10^3/uL Basophils # (Auto) 0.0 0.0-0.1 10^3/uL Immature Granulocyte # (Auto) 0.0 0.0-0.1 10^3/uL My Orders Orders - FREDIS CUELLAR MD Ed Iv/Invasive Line Start (10/07/22 12:20) Cbc With Automated Diff (10/07/22 12:20) Comprehensive Metabolic Panel (10/07/22 12:20) Protime With Inr (10/07/22 12:20) Partial Thromboplastin Time (10/07/22 12:20) Vital Signs/I&O 10/07/22 12:13 Temp 36.6 Pulse 77 Resp 20 B/P (MAP) 154/80 (104) Pulse Ox 100 O2 Delivery Room Air Capillary Refill : Progress Note : Time: 12:39 Progress Note Patient seen and evaluated by me, 82-year-old with abnormal CT, chronically anticoagulated due to coronary artery disease. Evaluation today includes a physical exam, basic laboratory studies including CBC, Chem-12, PT PTT. Her vital signs are stable blood pressure 154/80 heart rate A-fib 79, normal room air oxygen saturations. Neurologically no significant focal neurological deficits. Awake alert oriented, pleasant. Main complaint "memory problems". I contacted [facility] in [place] and spoke with Dr. Montgomery neurosurgery on- call. He has reviewed her films and accepted her from a neurosurgery standpoint. He is happy to consult but believes she would be best served by hospital medicine admission. He would like her to go ER to ER. I then spoke with Dr. Edilson Mendez, ER physician and he has accepted her to the emergency department. CBC shows mild leukocytosis at 13,000, normal H&H. Normal platelets. Chemistry pending at the time of this dictation. Ground transportation being arranged. Diagnostic Imaging Diagonstic Imaging: CT Comments [facility], [place] NAME: MICHAEL BLACKMAN [facility] REC#: [id number] PT STATUS: REG CLI : 1940 PHYSICIAN: ALEJANDRA VÁSQUEZ ADMIT DATE: 10/07/22/RAD Draft Date of Exam:10/07/22 CT HEAD WO PROCEDURE: CT head without contrast. TECHNIQUE: Multiple contiguous axial images were obtained through the brain without the use of intravenous contrast. Auto Exposure Controls were utilized during the CT exam to meet ALARA standards for radiation dose reduction. INDICATION: Headache, dizziness and leg weakness. COMPARISON: 11/11/2020 There has been development of focal intraparenchymal hemorrhage in the posterior left temporal white matter with probable small associated subarachnoid hemorrhage. This measures approximately 3.4 x 3.7 cm and exerts mild surrounding edema and mass effect. No other hemorrhage is identified. There is no other significant change. Calvarium is intact and visualized paranasal sinuses are clear. IMPRESSION: Peripheral intraparenchymal hemorrhage in the posterior left temporal lobe with surrounding vasogenic edema and mild associated subarachnoid hemorrhage. Differential considerations include amyloid angiopathy or possible underlying hemorrhagic mass. Dictated on workstation # [id number] Dict: 10/07/22 1210 Trans: 10/07/22 1218 CV [id number] Interpreted by: GRIFFIN BADILLO MD Electronically signed by: Departure Impression Primary Impression: Intracranial hemorrhage Additional Impressions: Chronic anticoagulation History of CAD (coronary artery disease) Disposition: XFER SHT-TRM HOSP Condition: Stable Transfer Transfer Reason: Exceeds level of care Time Spoke to Accepting Phy: 12:40 Transfer Facility: [facility] Method of Transfer: EMS Departure-Patient Inst. Referrals: BRAULIO GANDHI MD (PCP/Family) Primary Care Physician Copy Copies To 1: BRAULIO GANDHI MD, KATHRYN M MD Oct 07, 2022 12:24
[2022-10-07 12:32] LABS: BASOPHILS % (AUTO) 0 % (0-10); EOSINOPHILS # (AUTO) 0.1 10^3/uL (0.0-0.3); EOSINOPHILS % (AUTO) 1 % (0-10); HEMATOCRIT 36 % (35-52); LYMPHOCYTES # (AUTO) 0.9 10^3/uL (1.0-4.0); LYMPHOCYTES % (AUTO) 10 % (12-44); MEAN CORPUSCULAR HEMOGLOBIN 33 pg (25-34); MEAN CORPUSCULAR HGB CONC 33 g/dL (32-36); MEAN CORPUSCULAR VOLUME 100 fL (80-99); MONOCYTES # (AUTO) 0.9 10^3/uL (0.0-1.0); MONOCYTES % (AUTO) 10 % (0-12); NEUTROPHILS % (AUTO) 78 % (42-75); PLATELET COUNT 193 10^3/uL (130-400); WHITE BLOOD COUNT 8.9 10^3/uL (4.3-11.0)
[2022-10-07 12:43] LABS: ALBUMIN 4.2 GM/DL (3.2-4.5); POTASSIUM 3.5 MMOL/L (3.6-5.0)
[2022-10-07 12:45] LABS: CALCIUM 9.2 MG/DL (8.5-10.1); INR 1.6 (0.8-1.4); PROTHROMBIN TIME PATIENT 19.1 SEC (12.2-14.7)
[2022-10-07 12:46] LABS: TOTAL PROTEIN 7.4 GM/DL (6.4-8.2)
[2022-10-07 12:48] LABS: BILIRUBIN,TOTAL 0.8 MG/DL (0.1-1.0)
[2022-10-07 12:49] LABS: CREATININE SERUM 0.64 MG/DL (0.60-1.30)
[2022-10-07 13:13] VITALS: BP 126/86
== END 2022-10-07 13:13 | disposition short-term general hospital (02) ==
LOC: EDUNIT# 12:18 → ER 12:19
DX: I60.9 Nontraumatic subarachnoid hemorrhage, unspecified (principal); I10 Essential (primary) hypertension; I25.10 Atherosclerotic heart disease of native coronary artery without angina pectoris; Z79.01 Long term (current) use of anticoagulants; Z79.02 Long term (current) use of antithrombotics/antiplatelets; Z95.5 Presence of coronary angioplasty implant and graft
CPT/HCPCS: 36415; 80053; 85025; 85610; 85730

== ENCOUNTER → 2022-10-07 | Outpatient (CLI) | payer MEDICARE ==
[~2022-10-07] MED LIST changes: +ASPI-1238 PO; +ATOR20TA66 PO; +CLOP75TA28 PO
[2022-10-07 11:34] LABS: HEMATOCRIT 34 % (35-52); HEMOGLOBIN 11.2 g/dL (11.5-16.0); MEAN CORPUSCULAR HEMOGLOBIN 33 pg (25-34); MEAN CORPUSCULAR HGB CONC 33 g/dL (32-36); MEAN CORPUSCULAR VOLUME 102 fL (80-99); MEAN PLATELET VOLUME 9.4 fL (9.0-12.2); PLATELET COUNT 179 10^3/uL (130-400)
[2022-10-07 11:42] LABS: ALBUMIN 3.9 GM/DL (3.2-4.5); POTASSIUM 3.5 MMOL/L (3.6-5.0)
[2022-10-07 11:44] LABS: CALCIUM 8.8 MG/DL (8.5-10.1)
[2022-10-07 11:45] LABS: TOTAL PROTEIN 6.8 GM/DL (6.4-8.2)
[2022-10-07 11:47] LABS: BILIRUBIN,TOTAL 0.8 MG/DL (0.1-1.0)
[2022-10-07 11:48] LABS: CREATININE SERUM 0.67 MG/DL (0.60-1.30)
--- NOTE | 2022-10-07 12:18 | Diagnostic Imaging Report ---
PROCEDURE: CT head without contrast. TECHNIQUE: Multiple contiguous axial images were obtained through the brain without the use of intravenous contrast. Auto Exposure Controls were utilized during the CT exam to meet ALARA standards for radiation dose reduction. INDICATION: Headache, dizziness and leg weakness. COMPARISON: 11/11/2020 There has been development of focal intraparenchymal hemorrhage in the posterior left temporal white matter with probable small associated subarachnoid hemorrhage. This measures approximately 3.4 x 3.7 cm and exerts mild surrounding edema and mass effect. No other hemorrhage is identified. There is no other significant change. Calvarium is intact and visualized paranasal sinuses are clear. IMPRESSION: Peripheral intraparenchymal hemorrhage in the posterior left temporal lobe with surrounding vasogenic edema and mild associated subarachnoid hemorrhage. Differential considerations include amyloid angiopathy or possible underlying hemorrhagic mass. Dictated by: Dictated on workstation # [id number]
== END ==
LOC: RAD 11:18
PROVIDERS: ATTEND Physician Assistant
DX: I60.9 Nontraumatic subarachnoid hemorrhage, unspecified (principal); I61.8 Other nontraumatic intracerebral hemorrhage; R10.13 Epigastric pain; R63.4 Abnormal weight loss
CPT/HCPCS: 36415; 70450; 80053; 82150; 83690; 85027